=== PATIENT | female | born 1955 | race Caucasian/White ===

== ENCOUNTER 2016-09-05 06:35 | Outpatient (RCR) | payer OTHER ==
[2016-08-22 07:10] VITALS: BP 158/76
[2016-08-22] MEDS: VANCOMYCIN 1 GM/NS 250 ML IVPB IV SCH ×2 (07:10)
[2016-08-22 08:15] VITALS: BP 158/76
[2016-08-23] MEDS: VANCOMYCIN 1 GM/NS 250 ML IVPB IV SCH ×2 (07:05)
[2016-08-23 08:11] VITALS: BP 147/82
[2016-08-24] MEDS: VANCOMYCIN 1 GM/NS 250 ML IVPB IV SCH ×2 (07:58)
[2016-08-24 08:20] VITALS: BP 130/102
[2016-08-24 09:03] VITALS: BP 130/82
[2016-08-25] MEDS: VANCOMYCIN 1 GM/NS 250 ML IVPB IV SCH ×2 (08:00)
[2016-08-25 09:00] VITALS: BP 152/76
[2016-08-26] MEDS: CATHETER FLUSH 10 ML SYR IV PRN ×2 (06:55→07:55)
[2016-08-26] MEDS: VANCOMYCIN 1 GM/NS 250 ML IVPB IV SCH ×2 (06:55)
[2016-08-26 07:12] VITALS: BP 113/68
[2016-08-27] MEDS: CATHETER FLUSH 10 ML SYR IV PRN ×2 (07:15→09:25)
[2016-08-27] MEDS: VANCOMYCIN 1 GM/NS 250 ML IVPB IV SCH ×2 (07:15)
[2016-08-27 09:30] VITALS: BP 121/66
[2016-08-28] MEDS: CATHETER FLUSH 10 ML SYR IV PRN ×2 (06:40→08:40)
[2016-08-28] MEDS: VANCOMYCIN INJECTION 1,500 MG in NS IV 500 ML 500 ML IV SCH (06:40)
[2016-08-28 07:48] VITALS: BP 130/71
[2016-08-29] MEDS: VANCOMYCIN INJECTION 1,500 MG in NS IV 500 ML 500 ML IV SCH (06:33)
[2016-08-29] MEDS: CATHETER FLUSH 10 ML SYR IV PRN ×2 (06:33→08:35)
[2016-08-29 07:11] VITALS: BP 130/71
[2016-08-30] MEDS: CATHETER FLUSH 10 ML SYR IV PRN ×2 (07:00→09:56)
[2016-08-30] MEDS: VANCOMYCIN INJECTION 1,500 MG in NS IV 500 ML 500 ML IV SCH (07:55)
[2016-08-30 10:00] VITALS: BP 118/65
[2016-08-31] MEDS: CATHETER FLUSH 10 ML SYR IV PRN ×2 (08:13→10:15)
[2016-08-31 08:15] VITALS: BP 126/63
[2016-08-31] MEDS: VANCOMYCIN INJECTION 1,500 MG in NS IV 500 ML 500 ML IV SCH (08:15)
[2016-09-01 08:00] VITALS: BP 110/64
[2016-09-01] MEDS: CATHETER FLUSH 10 ML SYR IV PRN ×2 (08:37→11:30)
[2016-09-01 08:53] LABS: RED BLOOD COUNT 3.79 10^6/uL (4.35-5.85); RED CELL DISTRIBUTION WIDTH 13.9 % (10.0-14.5); WHITE BLOOD COUNT 4.8 10^3/uL (4.3-11.0)
[2016-09-01 09:10] LABS: BILIRUBIN,TOTAL 0.6 MG/DL (0.1-1.0); CALCIUM 9.1 MG/DL (8.5-10.1); CREATININE SERUM 1.02 MG/DL (0.60-1.30); POTASSIUM 4.1 MMOL/L (3.6-5.0); TOTAL PROTEIN 6.9 G/DL (6.4-8.2)
[2016-09-01] MEDS: VANCOMYCIN INJECTION 1,500 MG in NS IV 500 ML 500 ML IV SCH (09:25)
[2016-09-02] MEDS: VANCOMYCIN INJECTION 1,500 MG in NS IV 500 ML 500 ML IV SCH (06:45)
[2016-09-02] MEDS: CATHETER FLUSH 10 ML SYR IV PRN ×2 (06:45→08:50)
[2016-09-02 08:55] VITALS: BP 110/56
[2016-09-02 12:26] LABS: BASOPHILS % (AUTO) 0 % (0-10); EOSINOPHILS # (AUTO) 0.2 10^3/uL (0.0-0.3); EOSINOPHILS % (AUTO) 4 % (0-10); LYMPHOCYTES # (AUTO) 0.5 X 10^3 (1.0-4.0); LYMPHOCYTES % (AUTO) 12 % (12-44); MEAN CORPUSCULAR HEMOGLOBIN 29 PG (25-34); MEAN CORPUSCULAR HGB CONC 36 G/DL (32-36); MEAN CORPUSCULAR VOLUME 82 FL (80-99); MEAN PLATELET VOLUME 9.5 FL (7.4-10.4); MONOCYTES # (AUTO) 0.3 X 10^3 (0.0-1.0); MONOCYTES % (AUTO) 7 % (0-12); NEUTROPHILS % (AUTO) 76 % (42-75); PLATELET COUNT 202 10^3/uL (130-400); RED CELL DISTRIBUTION WIDTH 13.9 % (10.0-14.5)
[2016-09-03] MEDS: VANCOMYCIN INJECTION 1,500 MG in NS IV 500 ML 500 ML IV SCH (07:15)
[2016-09-03] MEDS: CATHETER FLUSH 10 ML SYR IV PRN ×2 (07:15→09:20)
[2016-09-03 07:57] VITALS: BP 104/63
[2016-09-04] MEDS: CATHETER FLUSH 10 ML SYR IV PRN ×2 (06:18→08:33)
[2016-09-04] MEDS: VANCOMYCIN INJECTION 1,500 MG in NS IV 500 ML 500 ML IV SCH (06:25)
[2016-09-04 08:35] VITALS: BP 114/52
[~2016-09-05] VITALS: Ht 160 cm; Wt 68.0 kg
[2016-09-05 06:35] VITALS: BP 109/77
[~2016-09-05 06:35] MED LIST: ALLO100T PO; AMOX1TAB12 PO; ASP81TEC PO; Azithromycin PO; BACL10TA PO; C250T PO; CALC-172 PO; CEFD300C PO; E400C PO; FLUT9.9S NS; FOLI1TAB10 PO; GUAI400T71 PO; HYDR-3583 PO; HYDR50TA3 PO; IBP800T PO; LISI1TAB10 PO; LISI1TAB78 PO; LORA10CA PO; NF-METANX PO; OMEP40CA36 PO; PNT40TEC PO; POTA99TA7 PO; SODIUM CHLORIDE (ADD-VANTAGE) 250 ML ONE; TROUGH ORDER-PHARMACY XX NR; VANC1FRO IV; VANCOMYCIN 1 GM ADD-VANTAGE VIAL IV ONE; VANCOMYCIN 500 MG/NS 100 ML IVPB IV ONE
[2016-09-05] MEDS: VANCOMYCIN INJECTION 1,500 MG in NS IV 500 ML 500 ML IV SCH (07:17)
[2016-09-05] MEDS ORDERED: L.AC1CAP6 PO (12:26)
[2016-09-05] MEDS ORDERED: AMOX-358 PO (12:26)
[2016-09-05] MEDS ORDERED: BACL10TA PO (12:26)
[2016-09-06] MEDS ORDERED: TROUGH ORDER-PHARMACY XX NR (07:00)
[2016-09-12] MEDS ORDERED: MERO500V3 IV ×2 (08:53→13:05)
== END 2016-11-20 | disposition home or self-care (01) ==
LOC: SDC 06:35
PROVIDERS: ATTEND Family Medicine
DX: J15.9 Unspecified bacterial pneumonia (principal)
CPT/HCPCS: 36415; 36592; 80053; 80202; 85025; 85027; 87040; 96365; 96366; 99211

== ENCOUNTER 2016-09-25 06:40 | Outpatient (RCR) | payer OTHER ==
[2016-09-18 10:05] VITALS: BP 118/70
[~2016-09-25] VITALS: Ht 160 cm; Wt 69.4 kg
[~2016-09-25 06:40] MED LIST changes: +AMOX-358 PO; +L.AC1CAP6 PO; +MERO500V3 IV; -SODIUM CHLORIDE (ADD-VANTAGE) 250 ML ONE; -TROUGH ORDER-PHARMACY XX NR; -VANCOMYCIN 1 GM ADD-VANTAGE VIAL IV ONE; -VANCOMYCIN 500 MG/NS 100 ML IVPB IV ONE
[2016-09-25 07:00] VITALS: BP 152/83
== END 2016-12-17 | disposition home or self-care (01) ==
LOC: SDC 06:40
PROVIDERS: ATTEND Family Medicine
DX: Z45.2 Encounter for adjustment and management of vascular access device (principal)
CPT/HCPCS: 99212

== ENCOUNTER → 2017-03-06 | Outpatient (CLI) | payer OTHER ==
--- NOTE | 2017-03-06 17:18 | Diagnostic Imaging Report ---
PROCEDURE: CT urinary tract, rule out kidney stone. TECHNIQUE: Multiple contiguous axial images were obtained through the abdomen and pelvis without the use of intravenous contrast. DATE: March 06, 2017. COMPARISON: CT abdomen and pelvis, February 20, 2015. INDICATION: A 61-year-old female, right lower back and flank pain. Hematuria. FINDINGS: There is opacification within the peripheral right lower lobe subsegmental bronchus which is unchanged in extent since February 20, 2015. The additional visualized portions of the lung bases are clear. The heart is not enlarged. There is no pericardial effusion. The liver is normal in size and contour. The patient is status post cholecystectomy. There is no intrahepatic or extrahepatic bile duct dilation. There is no abnormal dilation of the main pancreatic duct. The pancreatic parenchyma is grossly unremarkable on noncontrast assessment. The spleen is not enlarged. There is a small accessory splenule on axial image 37. The adrenal glands are unremarkable. Unremarkable noncontrast appearance of the renal parenchyma. The urinary collecting systems are not distended. There is no identified renal or ureteral stone. The urinary bladder is unremarkable in appearance. There is diverticulosis without evidence of acute diverticulitis. The intestinal tract is not distended. The appendix is not well seen. There are no secondary findings to suggest acute appendicitis. There is no free intraperitoneal air. There is no drainable fluid collection. There is a duodenal diverticulum arising from the third portion of the duodenum which measures roughly 2.5 x 2.5 cm in axial dimension on axial image 49. There is no identified abnormally enlarged lymph node within the abdomen or pelvis which meets CT size criteria for adenopathy. There are mild atherosclerotic calcifications. 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 There are degenerative changes of the lower lumbar spine with very mild lumbar dextrocurvature. There is no identified acute bony abnormality. IMPRESSION: CT ABDOMEN AND PELVIS. 1. No identified acute abnormality within the abdomen or pelvis. 2. Diverticulosis without evidence of diverticulitis. 3. Duodenal diverticulum. 4. Persistent opacification within a subsegmental right lower lobe bronchus which is unchanged dating back to at least February 20, 2015, which is suggestive of benign etiology. Dictated by: Dictated on workstation # [id number]
== END ==
LOC: RAD 16:48
PROVIDERS: ATTEND Nurse Practitioner
DX: K57.30 Diverticulosis of large intestine without perforation or abscess without bleeding (principal); K57.10 Diverticulosis of small intestine without perforation or abscess without bleeding; R31.9 Hematuria, unspecified
CPT/HCPCS: 74176

== ENCOUNTER → 2017-04-15 | Outpatient (CLI) | payer OTHER ==
--- NOTE | 2017-04-15 10:51 | Diagnostic Imaging Report ---
PROCEDURE: CT chest without contrast. TECHNIQUE: Multiple contiguous axial images were obtained through the chest without the use of intravenous contrast. INDICATION: Lung nodules followup. COMPARISON: Exam on 10/10/2016 FINDINGS: There is a lung nodule seen along the lateral aspect of the right middle lobe just below the level of the minor fissure measuring 8 mm and is similar to the prior exam. There is also a nodular elongated density seen in the lateral aspect of the left lung base with a configuration suggestive of atelectasis or scarring, unchanged from the previous study. The left lung demonstrates stable 5 mm nodule along the major fissure with no significant consolidation, mass or suspicious nodule. The heart size is normal. There is no mediastinal mass. No lymphadenopathy in the axilla or the mediastinum seen. No significantly enlarged lymph nodes or mass seen abutting the unopacified hilar vessels. The thoracic aorta is normal in caliber. There is no pericardial or pleural effusion. The sections in the upper abdomen demonstrate cholecystectomy clips. The osseous structures demonstrate mild degenerative changes of the thoracic spine. IMPRESSION: Stable bilateral pulmonary nodules and right lung base subsegmental consolidation likely related to scarring or chronic atelectasis. A followup study in 9-12 months is recommended to ensure further stability. Dictated by: Dictated on workstation # [id number]
== END ==
LOC: RAD 07:37
PROVIDERS: ATTEND Internal Medicine Critical Care Medicine
DX: J85.2 Abscess of lung without pneumonia (principal); R91.8 Other nonspecific abnormal finding of lung field
CPT/HCPCS: 71250

== ENCOUNTER → 2017-05-26 | Outpatient (CLI) | payer OTHER | LOC: RT 12:30 | PROVIDERS: ATTEND Nurse Practitioner Family | DX: R06.00 Dyspnea, unspecified (principal); R91.8 Other nonspecific abnormal finding of lung field; F17.201 Nicotine dependence, unspecified, in remission | CPT/HCPCS: 94060; 94726; 94729 ==

== ENCOUNTER → 2017-10-20 | Outpatient (CLI) | payer OTHER ==
--- NOTE | 2017-10-20 14:30 | Diagnostic Imaging Report ---
INDICATION: Cough. History of flu. COMPARISON: CT chest dated 04/15/2017. FINDINGS: Frontal and lateral radiographic views of the chest were obtained and demonstrate interval development of rounded masslike opacity in the right lower lobe that measures approximately 3.9 x 3.1 cm on the frontal view. There is central lucency. This is new when compared to CT chest dated 04/15/2017. Left lung is relatively clear. No large effusion or pneumothorax is seen on either side. Cardiac silhouette and pulmonary vasculature are within normal limits. IMPRESSION: 1. Rounded masslike opacity in right lower lobe. Given that this is new since 04/15/2017, rounded pneumonia is favored. True soft tissue mass cannot be entirely excluded. Central lucency also raises potential for intraparenchymal abscess or other cavitary process. Tuberculosis not excluded. Cavitary neoplasm such as squamous cell carcinoma is also within the differential. Correlation with CT is recommended. Dictated by: Dictated on workstation # [id number]
== END ==
LOC: RAD 13:08
PROVIDERS: ATTEND Family Medicine
DX: R91.8 Other nonspecific abnormal finding of lung field (principal); R04.2 Hemoptysis
CPT/HCPCS: 71020

== ENCOUNTER → 2017-10-22 | Outpatient (CLI) | payer OTHER ==
[~2017-10-22] MED LIST changes: +CATHETER FLUSH 10 ML SYR IV PRN; +IOHEXOL 350 MG/ML 100 ML (OMNIPAQUE 350) VIAL IV ONE; +NS 100 ML (IVPB) BAG IV ONE
[2017-10-22 10:07] LABS: BLOOD UREA NITROGEN 15 MG/DL (7-18); BUN/CREATININE RATIO 16; CREATININE SERUM 0.93 MG/DL (0.60-1.30); GFR ESTIMATED > 60
--- NOTE | 2017-10-22 11:36 | Diagnostic Imaging Report ---
PROCEDURE: CT chest with contrast only. TECHNIQUE: Multiple contiguous axial images were obtained through the chest after administration of intravenous contrast. INDICATION: Cough, congestion. COMPARISON: Exam compared to 04/15/2017, also compared to 10/10/2016. FINDINGS: Corresponding to the site of a chronic curvilinear subpleural opacity in the patient's right lower lobe laterally, there has been the development of a thickwalled Irregular cavitary lesion with internal air-fluid level. The lesion's outer wall to outer wall diameter today measures maximal 4.1 x 3.6 cm. The process previously had a stable short axis thickness of 9 mm. Peripheral to this lesion is airspace opacity and infiltrate. Perifissural or interfissural nodule on the right measured 9.5 mm. This previously measured 8 mm. There is no effusion or pneumothorax. Subcarinal lymph node measures a short axis thickness of 9.8 mm, this is a new finding. Adjacent hilar nodules or bilobed mass is measured in aggregate at 2 cm long axis with short axis thickness of 1.3 cm, also an apparent new finding. Superior mediastinal pretracheal node measures 11 mm x 6 mm, new. The adrenals are unremarkable. Incompletely visualized liver, unremarkable. Gallbladder is surgically absent. No destructive osseous lesion. IMPRESSION: Thickwalled cavitary mass effect in the right lower lobe has developed at the site of previous stable curvilinear infiltrate or scarring. Peripheral to the mass effect is airspace disease. This could be centrally necrotic tumor or abscess. The process could be sampled percutaneously utilizing CT guidance. A mendy or interfissural nodule in the right has increased in size. There is mild mediastinal and right hilar lymphadenopathy which could be reactive or metastatic. No empyema or effusion. The visualized upper abdomen is nonacute. Dictated by: Dictated on workstation # [id number]
== END ==
LOC: RAD 09:38
PROVIDERS: ATTEND Nurse Practitioner Family
DX: R91.8 Other nonspecific abnormal finding of lung field (principal); R59.0 Localized enlarged lymph nodes
CPT/HCPCS: 36415; 71260; 82565; 84520

== ENCOUNTER → 2017-11-25 | Outpatient (CLI) | payer OTHER ==
[~2017-11-25] MED LIST changes: -CATHETER FLUSH 10 ML SYR IV PRN; -IOHEXOL 350 MG/ML 100 ML (OMNIPAQUE 350) VIAL IV ONE; -NS 100 ML (IVPB) BAG IV ONE
--- NOTE | 2017-11-25 09:53 | Diagnostic Imaging Report ---
PROCEDURE: CT chest without contrast. TECHNIQUE: Multiple contiguous axial images were obtained through the chest without the use of intravenous contrast. INDICATION: Lung mass The recent CT chest exam performed on 10/22/2017 noted a thickwalled cavitary mass in the right lower lobe. There is also associated airspace disease about this mass. On the prior study the mass in question measured 4.1 x 3.6 CM. On this study, the mass has decreased considerably in size and now measures 2.0 x 2.4 CM. There is also much less associated pneumonia/atelectasis about this mass. The small 9 MM node along the periphery of the right lung base seen previously is again evident and no different. There is also a 4 MM parenchymal opacity in the left perihilar region. This finding is unchanged as well. The lungs are otherwise generally clear. There is no sign of a pleural effusion. The heart size is stable and within normal limits. Sparse coronary artery calcifications are noted. The aorta is not abnormally dilated. There is no obvious mediastinal or hilar adenopathy. The thyroid gland is generally unremarkable. The sections through the upper abdomen failed to show any sign of an acute abnormality. The bone windows are unremarkable for a fracture or for a destructive lesion. There is no obvious breast mass. According to our records the patient has not had a mammogram. If the patient has had a recent (within the last year) mammogram elsewhere, then no further imaging will be necessary. However, if patient has not had a recent mammogram, then mammography would be recommended for further study. IMPRESSION: 1. The appearance of the chest has improved since the prior exam as the cavitary lesion in the right lung base has decreased in size and there is much less associated pneumonia/atelectasis. The decrease in the size of the cavitary lesion would suggest it is more likely due to an inflammatory/infectious process than to neoplasm. A short-term (4-6 week) followup CT chest exam would be recommended for continued evaluation. 2. There is no acute cardiopulmonary abnormality noted otherwise. 3. There is no obvious breast mass. Recommendations as above. Dictated by: Dictated on workstation # [id number]
== END ==
LOC: RAD 08:14
PROVIDERS: ATTEND Nurse Practitioner Family
DX: R91.1 Solitary pulmonary nodule (principal)
CPT/HCPCS: 71250

== ENCOUNTER → 2018-01-12 | Outpatient (CLI) | payer OTHER ==
--- NOTE | 2018-01-12 09:23 | Diagnostic Imaging Report ---
PROCEDURE: CT chest without contrast. TECHNIQUE: Multiple contiguous axial images were obtained through the chest without the use of intravenous contrast. INDICATION: Right-sided lung mass. COMPARISON: CT chest from 11/25/2017. FINDINGS: No axillary lymphadenopathy is identified. The hilar and mediastinal evaluation is limited without intravenous contrast but no gross abnormality is seen. No pericardial or pleural fluid is identified. The previously noted subpleural nodule along the major fissure on the right is stable to slightly smaller measuring 7 mm compared with 9 mm. There continues to be significant improvement in the cavitary lesion involving the superior segment of the right lower lobe. The cavitary component measures 1.8 cm AP x 2.1 cm transverse compared with approximately 2.4 cm x 2.0 cm previously. The wall of the lesion is very thin on today's study. The surrounding parenchymal opacity also shows significant improvement, likely improving infiltrate. There continues to be an area of linear parenchymal density along the lateral portion of the lesion, consistent with scarring or atelectasis. No new parenchymal mass is identified. The upper abdomen is unremarkable. IMPRESSION: Continued improvement in the cavitary lesion involving the superior segment of the right lower lobe. Again, this is likely on an infectious/inflammatory basis. Continued followup is recommended. Dictated by: Dictated on workstation # [id number]
== END ==
LOC: RAD 08:41
PROVIDERS: ATTEND Nurse Practitioner Family
DX: R91.8 Other nonspecific abnormal finding of lung field (principal)
CPT/HCPCS: 71250

== ENCOUNTER → 2019-04-15 | Outpatient (CLI) | payer OTHER | LOC: CARD 08:05 | PROVIDERS: ATTEND Internal Medicine Cardiovascular Disease | DX: R07.89 Other chest pain (principal); I10 Essential (primary) hypertension; R06.09 Other forms of dyspnea; F17.201 Nicotine dependence, unspecified, in remission; I08.1 Rheumatic disorders of both mitral and tricuspid valves | CPT/HCPCS: 93306 ==

== ENCOUNTER → 2019-04-15 | Outpatient (CLI) | payer OTHER ==
--- NOTE | 2019-04-15 13:22 | Diagnostic Imaging Report ---
INDICATION: Left flank pain x2 days.. TECHNIQUE: 2 supine views of the abdomen at 9:04 AM CORRELATION STUDY: None FINDINGS: Scattered gas-filled loops of bowel are present, nonobstructive pattern. Mild severity fecal retention. Presumably cholecystectomy clips in the right upper quadrant. There is a small, 2 mm calcification in the left hemipelvis. In correlation with the prior CT imaging, likely reflects a small calcification previously adjacent to the cervix. Minimal rightward curvature lower lumbar spine. IMPRESSION: 1. Nonobstructed appearing bowel gas pattern. 2. Small calcification of left hemipelvis, likely present on prior imaging and demonstrated to be outside the course of the ureter. Dictated by: Dictated on workstation # [id number]
== END ==
LOC: RAD 08:55
PROVIDERS: ATTEND Family Medicine
DX: K66.8 Other specified disorders of peritoneum (principal); R10.9 Unspecified abdominal pain; R30.9 Painful micturition, unspecified
CPT/HCPCS: 74018

== ENCOUNTER → 2019-06-09 | Outpatient (CLI) | payer OTHER ==
[~2019-06-09] VITALS: Ht 160 cm; Wt 73.9 kg
[~2019-06-09] MED LIST changes: +CATHETER FLUSH 10 ML SYR IV PRN
--- NOTE | 2019-06-10 09:31 | STRESS TEST ---
DATE OF SERVICE: EXERCISE MYOVIEW STRESS TEST REPORT REFERRING PHYSICIANS: 1. Dr. Kamaljit Mathur. 2. Dr. Glenys Puentes. Baseline heart rate is 56. Baseline blood pressure 190/86. Baseline EKG is sinus rhythm with no ischemic changes. IN SUMMARY: The patient was injected with 10.83 mCi of technetium-99 Myoview and the resting images were obtained. Then, the patient started exercising with a baseline heart rate, blood pressure and EKG mentioned above. The patient was able to exercise for a total of 5 minutes 25 seconds on standard Jhonny protocol. With peak exercise level, EKG was showing [address] depression in II, III, aVF. Blood pressure was 217/90. During recovery, the patient had occasional PVCs persisted in recovery and pre-exercise. No acute ischemic changes. The resting and stress images were reviewed and compared in the short axis, horizontal long axis, and vertical long axis views. Review of the images showed breast attenuation affecting the quality of the images. There is decreased uptake involving the mid to apical anterior wall and anterolateral wall with reversibility. SSS is 11, SDS 10, TID value 1.12. On the gated images, the left ventricle appeared to be in normal size with normal contractility. Calculated ejection fraction 55%. IN CONCLUSION: 1. Fair exercise tolerance, a total of 5 minutes 25 seconds on standard Jhonny protocol, a total of 7.1 METS achieving 94% of maximum expected heart rate. 2. Baseline hypertension with severe hypertensive response to exercise with peak blood pressure 239/108. 3. Occasional PVCs noted prior to the exercise and during recovery. 4. Nondiagnostic EKG changes with exercise, returned to baseline during recovery. 5. Breast attenuation with reversible ischemia involving the mid to apical anterior wall and anterolateral . 6. Normal left ventricular size with normal contractility. Calculated ejection fraction 55%. Job ID: [id number] DocumentID: [id number] Dictated Date: 06/10/2019 08:29:05 Stamping Die Maker Date: 06/10/2019 09:30:00 Dictated By: DOMINGA GARSIA MD
== END ==
LOC: RAD 07:13
PROVIDERS: ATTEND Internal Medicine Cardiovascular Disease
DX: I11.9 Hypertensive heart disease without heart failure (principal); I25.89 Other forms of chronic ischemic heart disease; F17.201 Nicotine dependence, unspecified, in remission
CPT/HCPCS: 78452; 93017

== ENCOUNTER 2019-06-23 06:40 | Day surgery (SDC) | payer OTHER ==
[~2019-06-23] VITALS: Ht 160 cm; Wt 70.3 kg
[2019-06-23] VITALS (10 sets, daily range): BP systolic 106–165; BP diastolic 48–93
[~2019-06-23 06:40] MED LIST changes: -CATHETER FLUSH 10 ML SYR IV PRN
[2019-06-23] MEDS ORDERED: NS IV 1000 ML 1,000 ML ONE (06:47)
[2019-06-23] MEDS ORDERED: HEParin (CATH LAB) 2,000 ML IV ONE (06:47)
[2019-06-23] MEDS ORDERED: LIDOCAINE 1% INJ 20 ML 20 ML VIAL ONE (06:47)
[2019-06-23] MEDS ORDERED: NS IV 1000 ML 1,000 ML IV SCH ×2 (06:49→08:29)
[2019-06-23 07:10] LABS: HEMOGLOBIN 13.3 G/DL (11.5-16.0); MEAN PLATELET VOLUME 9.4 FL (7.4-10.4); RED CELL DISTRIBUTION WIDTH 14.1 % (10.0-14.5); WHITE BLOOD COUNT 5.5 10^3/uL (4.3-11.0)
[2019-06-23 07:22] LABS: INR 0.9 (0.8-1.4); PROTHROMBIN TIME PATIENT 12.5 SEC (12.2-14.7)
[2019-06-23] MEDS ORDERED: MAGN400C PO (07:23)
[2019-06-23] MEDS ORDERED: CETI10TA17 PO (07:23)
[2019-06-23] MEDS ORDERED: METO-387 PO (07:23)
[2019-06-23] MEDS ORDERED: CRAN200C PO (07:23)
[2019-06-23 07:30] LABS: ALBUMIN 4.3 GM/DL (3.2-4.5); BILIRUBIN,TOTAL 0.3 MG/DL (0.1-1.0); CALCIUM 9.8 MG/DL (8.5-10.1); CREATININE SERUM 1.11 MG/DL (0.60-1.30); POTASSIUM 4.6 MMOL/L (3.6-5.0); TOTAL PROTEIN 7.3 GM/DL (6.4-8.2)
[2019-06-23] MEDS ORDERED: VERAPAMIL 5 MG/2 ML (CALAN) VIAL IV ONE (07:40)
[2019-06-23] MEDS ORDERED: NITRO DRIP 25000 MCG/D5W 250 ML IV ONE (07:40)
[2019-06-23] MEDS ORDERED: fentaNYL INJECTION 100 MCG/2 ML AMP ONE (07:40)
[2019-06-23] MEDS ORDERED: HEParin 1000 UNIT/ML (10ML VIAL) FOR BOLUS ONE (07:40)
[2019-06-23] MEDS ORDERED: MIDAZOLAM 5 MG/5 ML (VERSED) VIAL ONE (07:40)
--- NOTE | 2019-06-23 07:52 | Diagnostic Imaging Report ---
INDICATION: Heart cath. COMPARISON: CT chest of 01/12/2018. FINDINGS: Portable chest. The lungs are well-aerated. No infiltrates or cavitary lesions demonstrated on today's exam. Heart is not enlarged. There is no pulmonary edema or hilar adenopathy. No pneumothorax or pleural effusion. No bony abnormalities. IMPRESSION: Normal portable chest. Dictated by: Dictated on workstation # [id number]
--- NOTE | 2019-06-23 08:11 | Cardiac Procedure Note-CS/ASA ---
Pre-Procedure Note Pre-Op Procedure Note H&P Reviewed The H&P was reviewed, patient examined and no changes noted. Date H&P Reviewed: Jun 23, 2019 Time H&P Reviewed: 08:11 Conscious Sedation Pre-Proced Time 08:11 ASA Score 3 For ASA 3 and 4: Consider anesthesia and medical clearance. Also, for patients with a history of failed moderate sedation consider anesthesia. Airway Lungs Heart ASA score ASA 1: a normal healthy patient ASA 2: a patient with a mild systemic disease (mid diabetes, controlled hypertension, obesity x ASA 3: a patient with a severe systemic disease that limits activity (angina, COPD, prior Myocardial infarction) ASA 4: a patient with an incapacitating disease that is a constant threat to life (CHF, renal failure) ASA 5: a moribund patient not expected to survive 24 hrs. (ruptured aneurysm) ASA 6: a declared brain- patient whose organs are being harvested. For emergent operations, add the letter E after the classification Mallampati Classification Grade 3 Sedation Plan Analgesia, Amnesia, Plan communicated to team members, Discussed options with patient/fam, Discussed risks with patient/fam The patient is an appropriate candidate to undergo the planned procedure, sedation, and anesthesia. The patient immediately re-assessed prior to indication. DOMINGA GARSIA MD Jun 23, 2019 08:11
--- NOTE | 2019-06-23 08:34 | Discharge Inst-Post CATH ---
Discharge Inst-CATH/EP Problems Reviewed?: Yes Post Cardiac Cath/EP D/C Inst Follow Up/Plan Appointment with Dr José's office in 2-4 weeks <b>CARDIAC CATH/EP PROCEDURE DISCHARGE INSTRUCTIONS</b> ACTIVITY * Go Home directly and rest. * Limit activity of the leg (or wrist if it was used) for 7 days including aerobics, swimming, jogging, bicycling, etc. * Restrict stair-climbing for 7 days if possible, if not, climb up with your non-cath leg, then bring together on the same step. * Avoid lifting, pushing, pulling or excessive movement of the affected extremity for 7 days. * Customary sexual activity may be resumed after 2 days-use caution not to use a position that strains or causes pain to the affected extremity. * No driving for 24 hours. * NO SMOKING. * Avoid straining for bowel movements for 7 days. * Gentle walking on level ground is allowed. * Returning to work will depend on the type of procedure and the results. Your doctor will discuss this with you. CALL YOUR DOCTOR FOR ANY OF THE FOLLOWING: *If bleeding from the puncture site occurs- Apply gentle pressure to site with clean cloth and call your doctor or EMS. * If a knot or lump forms under the skin, increases in size, or causes pain. * If bruising appears to be worsening or moving further down your leg instead of disappearing. * Temperature above 101 F. CARE OF YOUR GROIN INCISION; * Bruising or purple discoloration of the skin near the puncture site is common. * You may shower only, no bathtub bathing for 5 days. Be careful to avoid slipping as your leg may feel stiff. * If a closure device was used on your femoral artery, please see the attached guide regarding care of the device and your leg. * Leave dressing on FOR 24 hours. CARE OF YOUR WRIST INCISION; * Bruising or purple discoloration of the skin near the puncture site is common. * You may shower. * DO NOT submerge wrist. * Leave dressing on FOR 24 hours. DOMINGA JOSÉ MD Jun 23, 2019 08:34
--- NOTE | 2019-06-23 08:38 | Cardiac Cath Report ---
Cardiac Cath Report Physician (s)/Delicatessen Store Manager (s) Physician DOMINGA GARSIA MD Pre-Procedure Diagnosis Pre-Procedure Diagnosis: coronary artery disease Post-Procedure Note Procedure Start Date: Jun 23, 2019 Name of Procedure: Left heart catheterization Findings/Procedure Note PROCEDURE NOTE: 64-year-old lady with history of hypertension, had abnormal stress test with anterior wall ischemia, she was scheduled for cardiac catheterization possible PTCA. After explaining the procedure to the patient, all pros and cons were explained, all questions were answered. The patient signed the consent and then she was placed on the cardiac catheterization laboratory. Groin was prepped SL fashion local anesthesia was used. Sheath placed in the right radial artery, Dickens catheter was used and advanced the left ventricular cavity left ventricular gram was done then pullback LV to aorta was done, intubated the left main system and left coronary angiogram was done then turned to the right coronary system and intubated the right coronary artery and angiogram was done. At the end of the procedure sheath was removed vascular band was used. FINDINGS: Hemodynamics LV 111/21, end-diastolic pressure of 21 Aorta 107/56 mean of 78 ANATOMY: Left Main is free of obstructive disease Left Anterior Descending is slightly tortuous artery smaller artery with no significant obstructive disease, mild disease Left Circumflex is moderate size artery, no significant obstructive disease Right Coronory Artery is dominant artery with mild disease no obstructive disease LV Gram was done showing normal left ventricular size and systolic function estimated ejection fraction 60 percent CONCLUSION: 1. Small LAD system, mild disease nonobstructive disease 2. Otherwise no significant obstructive disease 3. Normal left ventricular size and systolic function estimated ejection fraction 60 percent DISCUSSION AND RECOMMENDATION: stress test abnormalities probably due to extracardiac attenuation, no significant obstructive disease was noted. Medical therapy is recommended Anesthesia Type: Conscious Sedation Estimated blood loss (mL): 5 ml Contrast Amount: 29 ml Total Radiation Dose: 151 mGy Post-Procedure Diagnosis Post-operative diagnosis: Chest pain Coronary artery disease Hypertension DOMINGA GARSIA MD Jun 23, 2019 08:38
== END 2019-06-23 12:15 | disposition home or self-care (01) ==
LOC: CATH 06:40
PROVIDERS: ATTEND Internal Medicine Cardiovascular Disease
DX: I25.10 Atherosclerotic heart disease of native coronary artery without angina pectoris (principal); I10 Essential (primary) hypertension; R06.00 Dyspnea, unspecified; R53.83 Other fatigue; R04.2 Hemoptysis; M10.9 Gout, unspecified; Z87.891 Personal history of nicotine dependence; Z90.89 Acquired absence of other organs; Z79.899 Other long term (current) drug therapy; Z87.09 Personal history of other diseases of the respiratory system; Z82.49 Family history of ischemic heart disease and other diseases of the circulatory system
CPT/HCPCS: 36415; 71045; 80053; 80061; 85027; 85610; 85730; 87081; 93458

== ENCOUNTER 2020-01-24 06:11 | Outpatient (RCR) | payer OTHER ==
[~2020-01-24 06:11] MED LIST changes: +CETI10TA17 PO; +CRAN200C PO; -GUAI400T71 PO; +GUAI400T86 PO; -LISI1TAB10 PO; +LISI1TAB26 PO; +MAGN400C PO; +MERO500V24 IV; -MERO500V3 IV; +MTP25TSR PO
== END 2020-02-16 | disposition home or self-care (01) ==
LOC: CR3 06:11
PROVIDERS: ATTEND Family Medicine
DX: Z29.8 Encounter for other specified prophylactic measures (principal)

== ENCOUNTER 2020-05-23 08:31 | Emergency (ER) | payer OTHER, MEDICARE ==
[~2020-05-23] VITALS: Ht 165.1 cm; Wt 75.0 kg
--- OUTSIDE RECORDS SUMMARY | 2020-05-23 08:38 | XMS REPORT ---
Author Author Reny Spivey Doctor Organization [facility] Address Unknown Phone Unavailable Care Team Providers Care Bonding Machine Operator Name Role Phone Migration, Doctor Unavailable Unavailable PROBLEMS Type Condition ICD9-CM Code [id number] Code Onset Dates Condition S tatus SNOMED Code Problem DTAP TEST V06.1 Active ALLERGIES No Information ENCOUNTERS Encounter Location Date Diagnosis [facility] [address] [facility] [id number] [address] [place] [id number] Sep, Bronchitis J40 [facility] [address] [facility] [id number] [address] [place] [id number] Jul, [facility] [address] [facility] [id number] [address] [place] [id number] Jul, IMMUNIZATIONS No Known Immunizations SOCIAL HISTORY Never Assessed REASON FOR VISIT PLAN OF CARE VITAL SIGNS MEDICATIONS No Known Medications RESULTS No Results PROCEDURES No Known procedures INSTRUCTIONS MEDICATIONS ADMINISTERED No Known Medications MEDICAL (GENERAL) HISTORY Type Description Date Surgical History Hospitalization History pneumonia UTI Dehydration
--- OUTSIDE RECORDS SUMMARY | 2020-05-23 08:39 | XMS REPORT | Continuity of Care Document ---
Author Organization Unknown Address Unknown Phone Unavailable Allergies Active Description Code Type Severity Reaction Onset Reported/Identified Relationship to Patient Clinical Status Yes codeine [id number] Drug Allergy Mild NAUSEA...CAN TA 09/05/2016 Medications There is no data. Problems Date Dx Coded Attending Type Code Diagnosis Diagnosed By 08/06/2014 BENJAMIN IRWIN DO V06.1 TDAP DX 02/21/2015 TAMIANDER DO, GLENYS S Ot 274.9 02/21/2015 ORENDER DO, GLENYS S Ot 303.90 02/21/2015 ORENDER DO, GLENYS S Ot 401.9 02/21/2015 ORENDER DO, GLENYS S Ot 486 02/21/2015 ORENDER DO, GLENYS S Ot 530.81 02/21/2015 ORENDER DO, GLENYS S Ot 599.0 02/22/2015 ORENDER DO, GLENYS S Ot 274.9 02/22/2015 ORENDER DO, GLENYS S Ot 303.90 02/22/2015 ORENDER DO, GLENYS S Ot 401.9 02/22/2015 ORENDER DO, GLENYS S Ot 486 02/22/2015 ORENDER DO, GLENYS S Ot 530.81 02/22/2015 ORENDER DO, GLENYS S Ot 599.0 02/23/2015 ORENDER DO, GLENYS S Ot 274.9 02/23/2015 ORENDER DO, GLENYS S Ot 303.90 02/23/2015 ORENDER DO, GLENYS S Ot 401.9 02/23/2015 ORENDER DO, GLENYS S Ot 486 02/23/2015 ORENDER DO, GLENYS S Ot 530.81 02/23/2015 ORENDER DO, GLENYS S Ot 599.0 02/23/2015 ORENDER DO, GLENYS S Ot 274.9 02/23/2015 ORENDER DO, GLENYS S Ot 276.51 02/23/2015 ORENDER DO, GLENYS S Ot 303.90 02/23/2015 ORENDER DO, GLENYS S Ot 303.91 02/23/2015 ORENDER DO, GLENYS S Ot 401.9 02/23/2015 ORENDER DO, GLENYS S Ot 480.9 02/23/2015 ORENDER DO, GLENYS S Ot 486 02/23/2015 ORENDER DO, GLENYS S Ot 530.81 02/23/2015 ORENDER DO, GLENYS S Ot 599.0 02/23/2015 ORENDER DO, GLENYS S Ot 790.5 04/24/2015 DEJAN ROGERS WAREHOUSE HAND Ot V12.61 04/24/2015 DEJAN ROGERS WAREHOUSE HAND Ot V67.59 01/15/2016 GLADYS SWIFT SENIOR SOFTWARE DEVELOPMENT MANAGER Ot R00.1 01/15/2016 GLADYS SWIFT APRN Ot R04.2 01/15/2016 GLADYS SWIFT APRN Ot R91.8 01/22/2016 ORENDER DO, GLENYS S Ot R91.8 OTHER NONSPECIFIC ABNORMAL FINDING OF CED 01/23/2016 ORENDER DO, GLENYS S Ot R91.8 01/25/2016 GLADYS SWIFT APRN Ot R04.2 01/25/2016 GLADYS SWIFT APRN Ot R91.8 05/02/2016 GRACIE JOSHI DO M Ot R91. 1 SOLITARY PULMONARY NODULE 05/02/2016 GRACIE JOSHI DO M Ot R91. 1 SOLITARY PULMONARY NODULE 2016 GRACIE JOSHI DO M Ot R91. 1 SOLITARY PULMONARY NODULE 05/17/2016 MELONY JOSHI DOSON M Ot R91. 1 SOLITARY PULMONARY NODULE 08/07/2016 ORENDER DO, GLENYS S Ot R10.9 UNSPECIFIED ABDOMINAL PAIN 08/07/2016 ORENDER DO, GLENYS S Ot R60.9 EDEMA, UNSPECIFIED 08/15/2016 GLADYS SWIFT SENIOR SOFTWARE DEVELOPMENT MANAGER Ot R00.1 BRADYCARDIA, UNSPECIFIED 08/15/2016 GLADYS SWIFT APRN Ot R04.2 HEMOPTYSIS 08/15/2016 GLADYS SWIFT Marlene SENIOR SOFTWARE DEVELOPMENT MANAGER Ot R91.8 OTHER NONSPECIFIC ABNORMAL FINDING OF CED 08/15/2016 GLADYS SWIFT Marlene SENIOR SOFTWARE DEVELOPMENT MANAGER Ot R04.2 HEMOPTYSIS 08/15/2016 GLADYS SWIFT Marlene SENIOR SOFTWARE DEVELOPMENT MANAGER Ot R91.8 OTHER NONSPECIFIC ABNORMAL FINDING OF CED 08/15/2016 GRACIE JOSHI DO M Ot R91. 1 SOLITARY PULMONARY NODULE 08/15/2016 TAMIANDER DO, GLENYS S Ot R10.9 UNSPECIFIED ABDOMINAL PAIN 08/15/2016 TAMIANDER DO, GLENYS S Ot R60.9 EDEMA, UNSPECIFIED 08/16/2016 GLADYS SWIFT Marlene SENIOR SOFTWARE DEVELOPMENT MANAGER Ot R00.1 BRADYCARDIA, UNSPECIFIED 08/16/2016 GLADYS SWIFT Marlene SENIOR SOFTWARE DEVELOPMENT MANAGER Ot R04.2 HEMOPTYSIS 08/16/2016 GLADYS SWIFT Marlene SENIOR SOFTWARE DEVELOPMENT MANAGER Ot R91.8 OTHER NONSPECIFIC ABNORMAL FINDING OF CED 08/16/2016 GLADYS SWIFT Marlene SENIOR SOFTWARE DEVELOPMENT MANAGER Ot R04.2 HEMOPTYSIS 08/16/2016 JAMISON GLADYS Marlene SENIOR SOFTWARE DEVELOPMENT MANAGER Ot R91.8 OTHER NONSPECIFIC ABNORMAL FINDING OF CED 08/16/2016 GRACIE JOSHI DO M Ot R91. 1 SOLITARY PULMONARY NODULE 08/16/2016 ORENDER DO, GLENYS S Ot R10.9 UNSPECIFIED ABDOMINAL PAIN 08/16/2016 ORENDER DO, GLENYS S Ot R60.9 EDEMA, UNSPECIFIED 08/16/2016 ORENDER DO, GLENYS S Ot R10.9 UNSPECIFIED ABDOMINAL PAIN 08/16/2016 ORENDER DO, GLENYS S Ot R60.9 EDEMA, UNSPECIFIED 08/21/2016 ORENDER DO, GLENYS S Ot I10 ESSENTIAL (PRIMARY) HYPERTENSION 08/21/2016 ATMIANDER DO, GLENYS S Ot J44.0 CHRONIC OBSTRUCTIVE PULMON DISEASE W ACU 08/21/2016 ORENDER DO, GLENYS S Ot J85.1 ABSCESS OF LUNG WITH PNEUMONIA 08/21/2016 TAMIANDER DO, GLENYS S Ot K21.9 GASTRO-ESOPHAGEAL REFLUX DISEASE WITHOUT 08/21/2016 ORENDER DO, GLENYS S Ot R91.1 SOLITARY PULMONARY NODULE 08/21/2016 ORENDER DO, GLENYS S Ot I10 ESSENTIAL (PRIMARY) HYPERTENSION 08/21/2016 ORENDER DO, GLENYS S Ot J44.0 CHRONIC OBSTRUCTIVE PULMON DISEASE W ACU 08/21/2016 ORENDER DO, GLENYS S Ot J85.1 ABSCESS OF LUNG WITH PNEUMONIA 08/21/2016 ORENDER DO, GLENYS S Ot K21.9 GASTRO-ESOPHAGEAL REFLUX DISEASE WITHOUT 08/21/2016 ORENDER DO, GLENYS S Ot R53.83 OTHER FATIGUE 08/21/2016 ORENDER DO, GLENYS S Ot R91.1 SOLITARY PULMONARY NODULE 08/21/2016 ORENDER DO, GLENYS S Ot T42.8X5A ADVERSE EFFECT OF ANTIPARKNS DRUG/CENTR 08/21/2016 ORENDER DO, GLENYS S Ot Z23 ENCOUNTER FOR IMMUNIZATION 08/27/2016 TAMIANDER DO GLENYS S Ot J15.9 UNSPECIFIED BACTERIAL PNEUMONIA 08/28/2016 TAMIANDER DO, GLENYS S Ot J15.9 UNSPECIFIED BACTERIAL PNEUMONIA 08/28/2016 TAMIANDER DO GLENYS S Ot J15.9 UNSPECIFIED BACTERIAL PNEUMONIA 08/28/2016 TAMIANDER DO, GLENYS S Ot I10 ESSENTIAL (PRIMARY) HYPERTENSION 08/28/2016 ORENDER DO, GLENYS S Ot J44.0 CHRONIC OBSTRUCTIVE PULMON DISEASE W ACU 08/28/2016 TAMIANDER DO, GLENYS S Ot J85.1 ABSCESS OF LUNG WITH PNEUMONIA 08/28/2016 TAMIANDER DO, GLENYS S Ot K21.9 GASTRO-ESOPHAGEAL REFLUX DISEASE WITHOUT 08/28/2016 ORENDER DO, GLENYS S Ot R53.83 OTHER FATIGUE 08/28/2016 TAMIANDER DO, GLENYS S Ot R91.1 SOLITARY PULMONARY NODULE 08/28/2016 ORENDER DO, GLENYS S Ot T42.8X5A ADVERSE EFFECT OF ANTIPARKNS DRUG/CENTR 08/28/2016 ORENDER DO, GLENYS S Ot Z23 ENCOUNTER FOR IMMUNIZATION 08/29/2016 ORENDER DO, GLENYS S Ot J15.9 UNSPECIFIED BACTERIAL PNEUMONIA 08/29/2016 ORENDER DO, GLENYS S Ot J15.9 UNSPECIFIED BACTERIAL PNEUMONIA 08/30/2016 ORENDER DO, GLENYS S Ot J15.9 UNSPECIFIED BACTERIAL PNEUMONIA 08/31/2016 ORENDER DO, GLENYS S Ot J15.9 UNSPECIFIED BACTERIAL PNEUMONIA 09/01/2016 ORENDER DO, GLENYS S Ot J15.9 UNSPECIFIED BACTERIAL PNEUMONIA 09/01/2016 ORENDER DO, GLENYS S Ot J15.9 UNSPECIFIED BACTERIAL PNEUMONIA 09/01/2016 ORENDER DO, GLENYS S Ot J15.9 UNSPECIFIED BACTERIAL PNEUMONIA 09/02/2016 ORENDER DO, GLENYS S Ot J15.9 UNSPECIFIED BACTERIAL PNEUMONIA 09/03/2016 ORENDER DO, GLENYS S Ot J15.9 UNSPECIFIED BACTERIAL PNEUMONIA 09/03/2016 ORENDER DO, GLENYS S Ot J15.9 UNSPECIFIED BACTERIAL PNEUMONIA 09/04/2016 ORENDER DO, GLENYS S Ot J15.9 UNSPECIFIED BACTERIAL PNEUMONIA 09/05/2016 ORENDER DO, GLENYS S Ot J15.9 UNSPECIFIED BACTERIAL PNEUMONIA 09/05/2016 GLADYS SWIFT APRN Ot R00.1 BRADYCARDIA, UNSPECIFIED 09/05/2016 GLADYS SWIFT APRN Ot R04.2 HEMOPTYSIS 09/05/2016 GLADYS SWIFT SENIOR SOFTWARE DEVELOPMENT MANAGER Ot R91.8 OTHER NONSPECIFIC ABNORMAL FINDING OF CED 09/05/2016 GLADYS SWIFT APRN Ot R04.2 HEMOPTYSIS 09/05/2016 GLADYS SWIFT APRN Ot R91.8 OTHER NONSPECIFIC ABNORMAL FINDING OF CED 09/05/2016 GRACIE JOSHI DO Ot R91. 1 SOLITARY PULMONARY NODULE 09/05/2016 ORENDER DO, GLENYS S Ot R10.9 UNSPECIFIED ABDOMINAL PAIN 09/05/2016 ORENDER DO, GLENYS S Ot R60.9 EDEMA, UNSPECIFIED 09/05/2016 ORENDER DO, GLENYS S Ot J15.9 UNSPECIFIED BACTERIAL PNEUMONIA 09/05/2016 ORENDER DO, GLENYS S Ot J15.9 UNSPECIFIED BACTERIAL PNEUMONIA 09/06/2016 GLADYS SWIFT APRN Ot R00.1 BRADYCARDIA, UNSPECIFIED 09/06/2016 GLADYS SWIFT SENIOR SOFTWARE DEVELOPMENT MANAGER Ot R04.2 HEMOPTYSIS 09/06/2016 GLADYS SWIFT SENIOR SOFTWARE DEVELOPMENT MANAGER Ot R91.8 OTHER NONSPECIFIC ABNORMAL FINDING OF CED 09/06/2016 GLADYS SWIFT SENIOR SOFTWARE DEVELOPMENT MANAGER Ot R04.2 HEMOPTYSIS 09/06/2016 GLADYS SWIFT Marlene SENIOR SOFTWARE DEVELOPMENT MANAGER Ot R91.8 OTHER NONSPECIFIC ABNORMAL FINDING OF CED 09/06/2016 ADI GRACIE LEARY Ot R91. 1 SOLITARY PULMONARY NODULE 09/06/2016 GLENYS PUENTES DO S Ot R10.9 UNSPECIFIED ABDOMINAL PAIN 09/06/2016 GLENYS PUENTES DO S Ot R60.9 EDEMA, UNSPECIFIED 09/06/2016 GLENYS PUENTES DO S Ot J15.9 UNSPECIFIED BACTERIAL PNEUMONIA 09/08/2016 JAMISON GLADYS N SENIOR SOFTWARE DEVELOPMENT MANAGER Ot R00.1 BRADYCARDIA, UNSPECIFIED 09/08/2016 JAMISON GLADYS N SENIOR SOFTWARE DEVELOPMENT MANAGER Ot R04.2 HEMOPTYSIS 09/08/2016 JAMISON GLADYS N SENIOR SOFTWARE DEVELOPMENT MANAGER Ot R91.8 OTHER NONSPECIFIC ABNORMAL FINDING OF CED 09/08/2016 GLADYS SWIFT SENIOR SOFTWARE DEVELOPMENT MANAGER Ot R04.2 HEMOPTYSIS 09/08/2016 JAMISON GLADYS N SENIOR SOFTWARE DEVELOPMENT MANAGER Ot R91.8 OTHER NONSPECIFIC ABNORMAL FINDING OF CED 09/08/2016 GRACIE JOSHI DO Ot R91. 1 SOLITARY PULMONARY NODULE 09/08/2016 SHANNON PUENTES DOLINE S Ot R10.9 UNSPECIFIED ABDOMINAL PAIN 09/08/2016 SHANNON PUENTES DOLINE S Ot R60.9 EDEMA, UNSPECIFIED 09/08/2016 SHANNON PUENTES DOLINE S Ot J15.9 UNSPECIFIED BACTERIAL PNEUMONIA 09/13/2016 GLENYS PUENTES DO S Ot D64.9 ANEMIA, UNSPECIFIED 09/13/2016 SHANNON PUENTES DOLINE S Ot E86.0 DEHYDRATION 09/13/2016 SHANNON PUENTES DOLINE S Ot E87.1 HYPO-OSMOLALITY AND HYPONATREMIA 09/13/2016 SHANNON PUENTES DOLINE S Ot I10 ESSENTIAL (PRIMARY) HYPERTENSION 09/13/2016 GLENYS PUENTES DO S Ot J85.1 ABSCESS OF LUNG WITH PNEUMONIA 09/13/2016 SHANNON PUENTES DOLINE S Ot K21.9 GASTRO-ESOPHAGEAL REFLUX DISEASE WITHOUT 09/13/2016 SHANNON PUENTES DOLINE S Ot M54.6 PAIN IN THORACIC SPINE 09/13/2016 GLENYS PUENTES DO Ot N17.9 ACUTE KIDNEY FAILURE, UNSPECIFIED 09/13/2016 GLENYS PUENTES DO Ot R60.9 EDEMA, UNSPECIFIED 09/13/2016 GLENYS PUENTES DO Ot Z23 ENCOUNTER FOR IMMUNIZATION 09/23/2016 GLENYS PUENTES DO Ot J15.9 UNSPECIFIED BACTERIAL PNEUMONIA 09/24/2016 Ot J85.2 ABSC ESS OF LUNG WITHOUT PNEUMONIA 09/25/2016 GLENYS PUENTES DO Ot Z45.2 ENCOUNTER FOR ADJUSTMENT AND MANAGEMENT 10/07/2016 Ot J85.2 ABSC ESS OF LUNG WITHOUT PNEUMONIA 10/11/2016 GRACIE JOSHI DO M Ot R91. 8 OTHER NONSPECIFIC ABNORMAL FINDING OF CED 10/17/2016 GRACIE JOSHI DO M Ot R91. 8 OTHER NONSPECIFIC ABNORMAL FINDING OF CED 10/17/2016 GRACIE JOSHI DO M Ot R91. 8 OTHER NONSPECIFIC ABNORMAL FINDING OF CED 10/17/2016 GRACIE JOSHI DO M Ot R91. 8 OTHER NONSPECIFIC ABNORMAL FINDING OF CED 10/21/2016 ADI GRACIE LEARY M Ot R91. 8 OTHER NONSPECIFIC ABNORMAL FINDING OF CED 10/21/2016 GLENYS PUENTES DO Ot Z45.2 ENCOUNTER FOR ADJUSTMENT AND MANAGEMENT 10/29/2016 GRACIE JOSHI DO Ot R91. 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 2 ABSCESS OF LUNG WITHOUT PNEUMONIA 04/17/2017 GRACIE JOSHI DO Ot R91. 8 OTHER NONSPECIFIC ABNORMAL FINDING OF CED 04/25/2017 GRACIE JOSHI DO Ot J85. 2 ABSCESS OF LUNG WITHOUT PNEUMONIA 04/25/2017 GRACIE JOSHI DO Ot R91. 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 04/25/2017 VALERIA SWIFTALEJANDRO Rosario SENIOR SOFTWARE DEVELOPMENT MANAGER Ot K57.30 DVRTCLOS OF LG INT W/O PERFORATION OR AB 04/25/2017 VALERIA SWIFTALEJANDRO Rosario SENIOR SOFTWARE DEVELOPMENT MANAGER Ot R31.9 HEMATURIA, UNSPECIFIED 06/06/2017 JANNA ANDERSON SENIOR SOFTWARE DEVELOPMENT MANAGER Ot F17.201 NICOTINE DEPENDENCE, UNSPECIFIED, IN REM 06/06/2017 JANNA ANDERSON SENIOR SOFTWARE DEVELOPMENT MANAGER Ot R06.00 DYSPNEA, UNSPECIFIED 06/06/2017 JANNA ANDERSON SENIOR SOFTWARE DEVELOPMENT MANAGER Ot R91.8 OTHER NONSPECIFIC ABNORMAL FINDING OF CED 10/20/2017 GLENYS PUENTES DO S Ot R04.2 HEMOPTYSIS 10/20/2017 SHANNON PUENTES DOLINE S Ot R91.8 OTHER NONSPECIFIC ABNORMAL FINDING OF CED 10/23/2017 ALEX NUR SENIOR SOFTWARE DEVELOPMENT MANAGER Ot J98.4 OTHER DISORDERS OF LUNG 10/23/2017 ALEX NUR SENIOR SOFTWARE DEVELOPMENT MANAGER Ot R59.0 LOCALIZED ENLARGED LYMPH NODES 10/23/2017 ALEX NUR SENIOR SOFTWARE DEVELOPMENT MANAGER Ot R91.1 SOLITARY PULMONARY NODULE 11/04/2017 GLENYS PUENTES DO S Ot R04.2 HEMOPTYSIS 11/04/2017 SHANNON PUENTES DOLINE S Ot R91.8 OTHER NONSPECIFIC ABNORMAL FINDING OF CED 11/04/2017 ALEX NUR SENIOR SOFTWARE DEVELOPMENT MANAGER Ot R59.0 LOCALIZED ENLARGED LYMPH NODES 11/04/2017 ALEX NUR SENIOR SOFTWARE DEVELOPMENT MANAGER Ot R91.8 OTHER NONSPECIFIC ABNORMAL FINDING OF CED 11/20/2017 GLADYS SWIFT Marlene SENIOR SOFTWARE DEVELOPMENT MANAGER Ot R00.1 BRADYCARDIA, UNSPECIFIED 11/20/2017 VALERIA SWIFTFANY Marlene SENIOR SOFTWARE DEVELOPMENT MANAGER Ot R04.2 HEMOPTYSIS 11/20/2017 VALERIA SWIFTALEJANDRO Rosario SENIOR SOFTWARE DEVELOPMENT MANAGER Ot R91.8 OTHER NONSPECIFIC ABNORMAL FINDING OF CED 11/20/2017 GLADYS SWIFT Marlene SENIOR SOFTWARE DEVELOPMENT MANAGER Ot R04.2 HEMOPTYSIS 11/20/2017 VALERIA SWIFTALEJANDRO Rosario SENIOR SOFTWARE DEVELOPMENT MANAGER Ot R91.8 OTHER NONSPECIFIC ABNORMAL FINDING OF CED 11/20/2017 GRACIE JOSHI DO Ot R91. 1 SOLITARY PULMONARY NODULE 11/20/2017 GRACIE JOSHI DO Ot R91. 8 OTHER NONSPECIFIC ABNORMAL FINDING OF CED 11/20/2017 SHANNON PUENTES DOLINE S Ot R10.9 UNSPECIFIED ABDOMINAL PAIN 11/20/2017 ILYA PUENTES DOQUELINE S Ot R60.9 EDEMA, UNSPECIFIED 11/20/2017 Ot J85.2 ABSC ESS OF LUNG WITHOUT PNEUMONIA 11/20/2017 GRACIE JOSHI DO Ot J85. 2 ABSCESS OF LUNG WITHOUT PNEUMONIA 11/20/2017 GRACIE JOSHI DO Ot R91. 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 11/20/2017 GLADYS SWIFT SENIOR SOFTWARE DEVELOPMENT MANAGER Ot K57.30 DVRTCLOS OF LG INT W/O PERFORATION OR AB 11/20/2017 GLADYS SWIFT SENIOR SOFTWARE DEVELOPMENT MANAGER Ot R31.9 HEMATURIA, UNSPECIFIED 11/20/2017 JANNA ANDERSON SENIOR SOFTWARE DEVELOPMENT MANAGER Ot F17.201 NICOTINE DEPENDENCE, UNSPECIFIED, IN REM 11/20/2017 JANNA ANDERSON SENIOR SOFTWARE DEVELOPMENT MANAGER Ot R06.00 DYSPNEA, UNSPECIFIED 11/20/2017 JANNA ANDERSON SENIOR SOFTWARE DEVELOPMENT MANAGER Ot R91.8 OTHER NONSPECIFIC ABNORMAL FINDING OF CED 11/20/2017 SHANNON PUENTES DOLINE S Ot R04.2 HEMOPTYSIS 11/20/2017 ILYA PUENTES DOQUELINE S Ot R91.8 OTHER NONSPECIFIC ABNORMAL FINDING OF CED 11/20/2017 ALEX NUR SENIOR SOFTWARE DEVELOPMENT MANAGER Ot R59.0 LOCALIZED ENLARGED LYMPH NODES 11/20/2017 ALEX NUR R SENIOR SOFTWARE DEVELOPMENT MANAGER Ot R91.8 OTHER NONSPECIFIC ABNORMAL FINDING OF CED 11/24/2017 GLADYS SWIFT Marlene SENIOR SOFTWARE DEVELOPMENT MANAGER Ot R00.1 BRADYCARDIA, UNSPECIFIED 11/24/2017 VALERIA SWIFTALEJANDRO Rosario SENIOR SOFTWARE DEVELOPMENT MANAGER Ot R04.2 HEMOPTYSIS 11/24/2017 GLADYS SWIFT Marlene SENIOR SOFTWARE DEVELOPMENT MANAGER Ot R91.8 OTHER NONSPECIFIC ABNORMAL FINDING OF CED 11/24/2017 GLADYS SWIFT Marlene SENIOR SOFTWARE DEVELOPMENT MANAGER Ot R04.2 HEMOPTYSIS 11/24/2017 GLADYS SWIFT Marlene SENIOR SOFTWARE DEVELOPMENT MANAGER Ot R91.8 OTHER NONSPECIFIC ABNORMAL FINDING OF CED 11/24/2017 GRACIE JOSHI DO Ot R91. 1 SOLITARY PULMONARY NODULE 11/24/2017 GRACIE JOSHI DO Ot R91. 8 OTHER NONSPECIFIC ABNORMAL FINDING OF CED 11/24/2017 GLENYS PUENTES DO S Ot R10.9 UNSPECIFIED ABDOMINAL PAIN 11/24/2017 GLENYS PUENTES DO S Ot R60.9 EDEMA, UNSPECIFIED 11/24/2017 Ot J85.2 ABSC ESS OF LUNG WITHOUT PNEUMONIA 11/24/2017 GRACIE JOSHI DO Ot J85. 2 ABSCESS OF LUNG WITHOUT PNEUMONIA 11/24/2017 GRACIE JOSHI DO Ot R91. 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 11/24/2017 GLADYS SWIFT SENIOR SOFTWARE DEVELOPMENT MANAGER Ot K57.30 DVRTCLOS OF LG INT W/O PERFORATION OR AB 11/24/2017 GLADYS SWIFT SENIOR SOFTWARE DEVELOPMENT MANAGER Ot R31.9 HEMATURIA, UNSPECIFIED 11/24/2017 JANNA ANDERSON SENIOR SOFTWARE DEVELOPMENT MANAGER Ot F17.201 NICOTINE DEPENDENCE, UNSPECIFIED, IN REM 11/24/2017 JNANA ANDERSON SENIOR SOFTWARE DEVELOPMENT MANAGER Ot R06.00 DYSPNEA, UNSPECIFIED 11/24/2017 JANNA ANDERSON SENIOR SOFTWARE DEVELOPMENT MANAGER Ot R91.8 OTHER NONSPECIFIC ABNORMAL FINDING OF CED 11/24/2017 ILYA PUENTES DOQUELINE S Ot R04.2 HEMOPTYSIS 11/24/2017 LEONARD LEARYGLENYS S Ot R91.8 OTHER NONSPECIFIC ABNORMAL FINDING OF CED 11/24/2017 ALEX NUR R SENIOR SOFTWARE DEVELOPMENT MANAGER Ot R59.0 LOCALIZED ENLARGED LYMPH NODES 11/24/2017 BOOM ALEX R SENIOR SOFTWARE DEVELOPMENT MANAGER Ot R91.8 OTHER NONSPECIFIC ABNORMAL FINDING OF CED 11/26/2017 JANNA ANDERSON SENIOR SOFTWARE DEVELOPMENT MANAGER Ot R91.1 SOLITARY PULMONARY NODULE 12/16/2017 JANNA ANDERSON SENIOR SOFTWARE DEVELOPMENT MANAGER Ot R91.1 SOLITARY PULMONARY NODULE 01/12/2018 GLADYS SWIFT SENIOR SOFTWARE DEVELOPMENT MANAGER Ot R00.1 BRADYCARDIA, UNSPECIFIED 01/12/2018 GLADYS SWIFT SENIOR SOFTWARE DEVELOPMENT MANAGER Ot R04.2 HEMOPTYSIS 01/12/2018 GLADYS SWIFT SENIOR SOFTWARE DEVELOPMENT MANAGER Ot R91.8 OTHER NONSPECIFIC ABNORMAL FINDING OF CED 01/12/2018 GLADYS SWIFT SENIOR SOFTWARE DEVELOPMENT MANAGER Ot R04.2 HEMOPTYSIS 01/12/2018 GLADYS SWIFT SENIOR SOFTWARE DEVELOPMENT MANAGER Ot R91.8 OTHER NONSPECIFIC ABNORMAL FINDING OF CED 01/12/2018 GRACIE JOSHI DO Ot R91. 1 SOLITARY PULMONARY NODULE 01/12/2018 GRACIE JOSHI DO Ot R91. 8 OTHER NONSPECIFIC ABNORMAL FINDING OF CED 01/12/2018 LEONARD LEARYGLENYS S Ot R10.9 UNSPECIFIED ABDOMINAL PAIN 01/12/2018 TAMIACARL LEARYGLENYS S Ot R60.9 EDEMA, UNSPECIFIED 01/12/2018 Ot J85.2 ABSC ESS OF LUNG WITHOUT PNEUMONIA 01/12/2018 GRACIE JOSHI DO Ot J85. 2 ABSCESS OF LUNG WITHOUT PNEUMONIA 01/12/2018 GRACIE JOSHI DO Ot R91. 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 01/12/2018 JAMISON GLADYS Marlene SENIOR SOFTWARE DEVELOPMENT MANAGER Ot K57.30 DVRTCLOS OF LG INT W/O PERFORATION OR AB 01/12/2018 GLADYS SWIFT SENIOR SOFTWARE DEVELOPMENT MANAGER Ot R31.9 HEMATURIA, UNSPECIFIED 01/12/2018 JANNA ANDERSON SENIOR SOFTWARE DEVELOPMENT MANAGER Ot F17.201 NICOTINE DEPENDENCE, UNSPECIFIED, IN REM 01/12/2018 JANNA ANDERSON APRN Ot R06.00 DYSPNEA, UNSPECIFIED 01/12/2018 JANNA ANDERSON SENIOR SOFTWARE DEVELOPMENT MANAGER Ot R91.8 OTHER NONSPECIFIC ABNORMAL FINDING OF CED 01/12/2018 JANNA ANDERSON SENIOR SOFTWARE DEVELOPMENT MANAGER Ot R91.1 SOLITARY PULMONARY NODULE 01/12/2018 SHANNON PUENTES DOLINE S Ot R04.2 HEMOPTYSIS 01/12/2018 TAMIANDSHANNON HERNANDEZ DOLINE S Ot R91.8 OTHER NONSPECIFIC ABNORMAL FINDING OF CED 01/12/2018 ALEX NUR R SENIOR SOFTWARE DEVELOPMENT MANAGER Ot R59.0 LOCALIZED ENLARGED LYMPH NODES 01/12/2018 ALEX NUR SENIOR SOFTWARE DEVELOPMENT MANAGER Ot R91.8 OTHER NONSPECIFIC ABNORMAL FINDING OF CED 01/13/2018 JANNA ANDERSON SENIOR SOFTWARE DEVELOPMENT MANAGER Ot R91.8 OTHER NONSPECIFIC ABNORMAL FINDING OF CED 01/18/2018 JANNA ANDERSON SENIOR SOFTWARE DEVELOPMENT MANAGER Ot R91.8 OTHER NONSPECIFIC ABNORMAL FINDING OF CED 04/20/2019 DOMINGA GARSIA MD Ot F17.201 NICOTINE DEPENDENCE, UNSPECIFIED, IN REM 04/20/2019 DOMINGA GARSIA MD Ot I08. 1 RHEUMATIC DISORDERS OF BOTH MITRAL AND T 04/20/2019 DOMINGA GARSIA MD Ot I10 ESSENTIAL (PRIMARY) HYPERTENSION 04/20/2019 DOMINGA GARSIA MD Ot R06. 09 OTHER FORMS OF DYSPNEA 04/20/2019 DOMINGA GARSIA MD Ot R07. 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 9 UNSPECIFIED ABDOMINAL PAIN 04/25/2019 LINCOLN LORA MD Ot R30. 9 PAINFUL MICTURITION, UNSPECIFIED 05/04/2019 DOMINGA GARSIA MD Ot F17.201 NICOTINE DEPENDENCE, UNSPECIFIED, IN REM 05/04/2019 DOMINGA GARSIA MD Ot I08. 1 RHEUMATIC DISORDERS OF BOTH MITRAL AND T 05/04/2019 DOMINGA GARSIA MD Ot I10 ESSENTIAL (PRIMARY) HYPERTENSION 05/04/2019 DOMINGA GARSIA MD Ot R06. 09 OTHER FORMS OF DYSPNEA 05/04/2019 DOMINGA GARSIA MD Ot R07. 89 OTHER CHEST PAIN 06/11/2019 DOMINGA GARSIA MD Ot F17.201 NICOTINE DEPENDENCE, UNSPECIFIED, IN REM 06/11/2019 DOMINGA GARSIA MD Ot I11. 9 HYPERTENSIVE HEART DISEASE WITHOUT HEART 06/11/2019 DOMINGA GARSIA MD Ot I25. 89 OTHER FORMS OF CHRONIC ISCHEMIC HEART DI 07/13/2019 DOMINGA GARSIA MD Ot E78. 5 HYPERLIPIDEMIA, UNSPECIFIED 07/13/2019 DOMINGA GARSIA MD Ot I10 ESSENTIAL (PRIMARY) HYPERTENSION 07/13/2019 DOMINGA GARSIA MD Ot I25. 10 ATHSCL HEART DISEASE OF [place] CORONARY 07/13/2019 DOMINGA GARSIA MD Ot M10. 9 GOUT, UNSPECIFIED 07/13/2019 DMOINGA GARSIA MD Ot Z79.899 OTHER GROUP HOME (CURRENT) DRUG THERAPY 07/13/2019 DOMINGA GARSIA MD Ot Z82. 49 FAMILY HX OF ISCHEM HEART DIS AND OTH DI 07/13/2019 DOMINGA GARSIA MD Ot Z87. 09 PERSONAL HISTORY OF OTHER DISEASES OF TH 07/13/2019 DOMINGA GARSIA MD Ot Z87.891 PERSONAL HISTORY OF NICOTINE DEPENDENCE 07/13/2019 DOMINGA GARSIA MD, Ot Z88. 5 ALLERGY STATUS TO NARCOTIC AGENT STATUS 07/13/2019 DOMINGA GARSIA MD Ot Z90. 49 ACQUIRED ABSENCE OF OTHER SPECIFIED PART Procedures Code Description Performed By [place] [id number] DR ANTUNEZ OF RIGHT LOWER LOBE BRONCHUS, E 09/06/2016 Results Test Result Range Complete blood count (CBC) with automate d white blood cell (WBC) differential - 08/15/16 21:10 Blood leukocytes automated count (number/volume) 11.9 10*3/uL 4.3-11.0 Blood erythrocytes automated count (number/volume) 3.85 10*6/uL 4.35-5.85 Venous blood hemoglobin measurement (mass/volume) 11.5 g/dL 11.5-16.0 Blood hematocrit (volume fraction) 34 % 35-52 Automated erythrocyte mean corpuscular volume 87 [ foz_us] 80-99 Automated erythrocyte mean corpuscular h emoglobin (mass per erythrocyte) 30 pg 25-34 Automated erythrocyte mean corpuscular h emoglobin concentration measurement (mass/volume) 34 g/dL 32-36 Automated erythrocyte distribution width ratio 12. 9 % 10.0- 14.5 Automated blood platelet count (count/volume) 329 10*3/uL 130-400 Automated blood platelet mean volume measurement 8.8 [foz_us] 7.4-10.4 Automated blood neutrophils/100 leukocytes 75 % 42-75 Automated blood lymphocytes/100 leukocytes 13 % 12-44 Blood monocytes/100 leukocytes 10 % 0-12 Automated blood eosinophils/100 leukocytes 1 % 0-10 Automated blood basophils/100 leukocytes 0 % 0-10 Blood neutrophils automated count (number/volume) 9.0 10*3 1.8-7.8 Blood lymphocytes automated count (number/volume) 1.6 10*3 1.0-4.0 Blood monocytes automated count (number/volume) 1. 1 10*3 0.0-1.0 Automated eosinophil count 0.2 10*3/uL 0 .0-0.3 Automated blood basophil count (count/volume) 0.0 10*3/uL 0.0-0.1 PT panel in platelet poor plasma by coag ulation assay - 08/15/16 21:10 Prothrombin time (PT) in platelet poor plasma by coagu lation assay 12.7 s 12.2-14.7 INR in platelet poor plasma or blood by coagulation as say 1.0 0.8-1.4 Comprehensive metabolic panel - 08/15/16 21:10 Serum or plasma sodium measurement (moles/volume) 131 mmol/L 135-145 Serum or plasma potassium measurement (moles/volume) 4.4 mmol/L 3.6-5.0 Serum or plasma chloride measurement (moles/volume) 99 mmol/L 98-107 Carbon dioxide 18 mmol/L 21-32 Serum or plasma anion gap determination (moles/volume) 14 mmol/L 5-14 Serum or plasma urea nitrogen measurement (mass/volume ) 30 mg/dL 7-18 Serum or plasma creatinine measurement (mass/volume) 1.22 mg/dL 0.60-1.30 Serum or plasma urea nitrogen/creatinine mass ratio 25 NRG Serum or plasma creatinine measurement w ith calculation of estimated glomerular filtration rate 45 NRG Serum or plasma glucose measurement (mass/volume) 107 mg/dL 70-105 Serum or plasma calcium measurement (mass/volume) 9.7 mg/dL 8.5-10.1 Serum or plasma total bilirubin measurement (mass/volu me) 0.3 mg/dL 0.1-1.0 Serum or plasma alkaline phosphatase héctor surement (enzymatic activity/volume) 69 U/L 40-136 Serum or plasma aspartate aminotransfera se measurement (enzymatic activity/volume) 18 U/L 5-34 Serum or plasma alanine aminotransferase measurement (enzymatic activity/volume) 18 U/L 0-55 Serum or plasma protein measurement (mass/volume) 7.5 g/dL 6.4-8.2 Serum or plasma albumin measurement (mass/volume) 4.3 g/dL 3.2-4.5 Sputum Gram stain - 08/15/16 22:35 GRAM STAIN SPUTUM AND MIXED BACTERIAL CHICHI NRG Bacterial sputum culture - 08/15/16 22:3 5 Bacterial sputum culture NORMAL NRG Bacterial blood culture - 08/15/16 22:35 Bacterial blood culture NG NRG Bacterial blood culture - 08/15/16 23:05 Bacterial blood culture NG NRG Complete blood count (CBC) with automate d white blood cell (WBC) differential - 08/16/16 04:47 Blood leukocytes automated count (number/volume) 8.5 10*3/uL 4.3-11.0 Blood erythrocytes automated count (number/volume) 3.49 10*6/uL 4.35-5.85 Venous blood hemoglobin measurement (mass/volume) 10.4 g/dL 11.5-16.0 Blood hematocrit (volume fraction) 31 % 35-52 Automated erythrocyte mean corpuscular volume 88 [ foz_us] 80-99 Automated erythrocyte mean corpuscular h emoglobin (mass per erythrocyte) 30 pg 25-34 Automated erythrocyte mean corpuscular h emoglobin concentration measurement (mass/volume) 34 g/dL 32-36 Automated erythrocyte distribution width ratio 13. 0 % 10.0- 14.5 Automated blood platelet count (count/volume) 285 10*3/uL 130-400 Automated blood platelet mean volume measurement 8.9 [foz_us] 7.4-10.4 Automated blood neutrophils/100 leukocytes 74 % 42-75 Automated blood lymphocytes/100 leukocytes 14 % 12-44 Blood monocytes/100 leukocytes 11 % 0-12 Automated blood eosinophils/100 leukocytes 2 % 0-10 Automated blood basophils/100 leukocytes 0 % 0-10 Blood neutrophils automated count (number/volume) 6.3 10*3 1.8-7.8 Blood lymphocytes automated count (number/volume) 1.2 10*3 1.0-4.0 Blood monocytes automated count (number/volume) 0. 9 10*3 0.0-1.0 Automated eosinophil count 0.1 10*3/uL 0 .0-0.3 Automated blood basophil count (count/volume) 0.0 10*3/uL 0.0-0.1 Complete blood count (CBC) with automate d white blood cell (WBC) differential - 08/17/16 06:50 Blood leukocytes automated count (number/volume) 5.9 10*3/uL 4.3-11.0 Blood erythrocytes automated count (number/volume) 3.58 10*6/uL 4.35-5.85 Venous blood hemoglobin measurement (mass/volume) 10.6 g/dL 11.5-16.0 Blood hematocrit (volume fraction) 32 % 35-52 Automated erythrocyte mean corpuscular volume 90 [ foz_us] 80-99 Automated erythrocyte mean corpuscular h emoglobin (mass per erythrocyte) 30 pg 25-34 Automated erythrocyte mean corpuscular h emoglobin concentration measurement (mass/volume) 33 g/dL 32-36 Automated erythrocyte distribution width ratio 12. 8 % 10.0- 14.5 Automated blood platelet count (count/volume) 302 10*3/uL 130-400 Automated blood platelet mean volume measurement 8.8 [foz_us] 7.4-10.4 Automated blood neutrophils/100 leukocytes 65 % 42-75 Automated blood lymphocytes/100 leukocytes 18 % 12-44 Blood monocytes/100 leukocytes 11 % 0-12 Automated blood eosinophils/100 leukocytes 5 % 0-10 Automated blood basophils/100 leukocytes 1 % 0-10 Blood neutrophils automated count (number/volume) 3.8 10*3 1.8-7.8 Blood lymphocytes automated count (number/volume) 1.1 10*3 1.0-4.0 Blood monocytes automated count (number/volume) 0. 7 10*3 0.0-1.0 Automated eosinophil count 0.3 10*3/uL 0 .0-0.3 Automated blood basophil count (count/volume) 0.0 10*3/uL 0.0-0.1 Comprehensive metabolic panel - 08/17/16 06:50 Serum or plasma sodium measurement (moles/volume) 141 mmol/L 135-145 Serum or plasma potassium measurement (moles/volume) 4.9 mmol/L 3.6-5.0 Serum or plasma chloride measurement (moles/volume) 112 mmol/L 98-107 Carbon dioxide 20 mmol/L 21-32 Serum or plasma anion gap determination (moles/volume) 9 mmol/L 5-14 Serum or plasma urea nitrogen measurement (mass/volume ) 17 mg/dL 7-18 Serum or plasma creatinine measurement (mass/volume) 0.96 mg/dL 0.60-1.30 Serum or plasma urea nitrogen/creatinine mass ratio 18 NRG Serum or plasma creatinine measurement w ith calculation of estimated glomerular filtration rate 59 NRG Serum or plasma glucose measurement (mass/volume) 100 mg/dL 70-105 Serum or plasma calcium measurement (mass/volume) 9.3 mg/dL 8.5-10.1 Serum or plasma total bilirubin measurement (mass/volu me) 0.3 mg/dL 0.1-1.0 Serum or plasma alkaline phosphatase héctor surement (enzymatic activity/volume) 63 U/L 40-136 Serum or plasma aspartate aminotransfera se measurement (enzymatic activity/volume) 23 U/L 5-34 Serum or plasma alanine aminotransferase measurement (enzymatic activity/volume) 33 U/L 0-55 Serum or plasma protein measurement (mass/volume) 6.0 g/dL 6.4-8.2 Serum or plasma albumin measurement (mass/volume) 3.4 g/dL 3.2-4.5 Vancomycin trough - 08/17/16 20:40 Vancomycin trough 6.9 ug/mL 10.0-20.0 Capillary blood glucose measurement by g lucometer (mass/volume) - 08/18/16 10:13 Capillary blood glucose measurement by glucometer (mas s/volume) 91 mg/dL 70-110 Vancomycin trough - 08/19/16 19:55 Vancomycin trough 28.4 ug/mL 10.0-20.0 Vancomycin trough - 08/23/16 06:40 Vancomycin trough 11.8 ug/mL 10.0-20.0 Vancomycin trough - 08/27/16 06:50 Vancomycin trough 9.9 ug/mL 10.0-20.0 Vancomycin trough - 08/30/16 07:00 Vancomycin trough 14.0 ug/mL 10.0-20.0 Automated blood complete blood count (he mogram) panel - 09/01/16 08:47 Blood leukocytes automated count (number/volume) 4.8 10*3/uL 4.3-11.0 Blood erythrocytes automated count (number/volume) 3.79 10*6/uL 4.35-5.85 Venous blood hemoglobin measurement (mass/volume) 11.1 g/dL 11.5-16.0 Blood hematocrit (volume fraction) 32 % 35-52 Automated erythrocyte mean corpuscular volume 84 [ foz_us] 80-99 Automated erythrocyte mean corpuscular h emoglobin (mass per erythrocyte) 29 pg 25-34 Automated erythrocyte mean corpuscular h emoglobin concentration measurement (mass/volume) 35 g/dL 32-36 Automated erythrocyte distribution width ratio 13. 9 % 10.0- 14.5 Automated blood platelet count (count/volume) 254 10*3/uL 130-400 Automated blood platelet mean volume measurement 9.0 [foz_us] 7.4-10.4 Comprehensive metabolic panel - 09/01/16 08:47 Serum or plasma sodium measurement (moles/volume) 128 mmol/L 135-145 Serum or plasma potassium measurement (moles/volume) 4.1 mmol/L 3.6-5.0 Serum or plasma chloride measurement (moles/volume) 95 mmol/L 98-107 Carbon dioxide 24 mmol/L 21-32 Serum or plasma anion gap determination (moles/volume) 9 mmol/L 5-14 Serum or plasma urea nitrogen measurement (mass/volume ) 17 mg/dL 7-18 Serum or plasma creatinine measurement (mass/volume) 1.02 mg/dL 0.60-1.30 Serum or plasma urea nitrogen/creatinine mass ratio 17 NRG Serum or plasma creatinine measurement w ith calculation of estimated glomerular filtration rate 55 NRG Serum or plasma glucose measurement (mass/volume) 99 mg/dL 70-105 Serum or plasma calcium measurement (mass/volume) 9.1 mg/dL 8.5-10.1 Serum or plasma total bilirubin measurement (mass/volu me) 0.6 mg/dL 0.1-1.0 Serum or plasma alkaline phosphatase héctor surement (enzymatic activity/volume) 67 U/L 40-136 Serum or plasma aspartate aminotransfera se measurement (enzymatic activity/volume) 30 U/L 5-34 Serum or plasma alanine aminotransferase measurement (enzymatic activity/volume) 26 U/L 0-55 Serum or plasma protein measurement (mass/volume) 6.9 g/dL 6.4-8.2 Serum or plasma albumin measurement (mass/volume) 4.0 g/dL 3.2-4.5 Complete blood count (CBC) with automate d white blood cell (WBC) differential - 09/02/16 12:15 Blood leukocytes automated count (number/volume) 4.0 10*3/uL 4.3-11.0 Blood erythrocytes automated count (number/volume) 3.50 10*6/uL 4.35-5.85 Venous blood hemoglobin measurement (mass/volume) 10.2 g/dL 11.5-16.0 Blood hematocrit (volume fraction) 29 % 35-52 Automated erythrocyte mean corpuscular volume 82 [ foz_us] 80-99 Automated erythrocyte mean corpuscular h emoglobin (mass per erythrocyte) 29 pg 25-34 Automated erythrocyte mean corpuscular h emoglobin concentration measurement (mass/volume) 36 g/dL 32-36 Automated erythrocyte distribution width ratio 13. 9 % 10.0- 14.5 Automated blood platelet count (count/volume) 202 10*3/uL 130-400 Automated blood platelet mean volume measurement 9.5 [foz_us] 7.4-10.4 Automated blood neutrophils/100 leukocytes 76 % 42-75 Automated blood lymphocytes/100 leukocytes 12 % 12-44 Blood monocytes/100 leukocytes 7 % 0-12 Automated blood eosinophils/100 leukocytes 4 % 0-10 Automated blood basophils/100 leukocytes 0 % 0-10 Blood neutrophils automated count (number/volume) 3.0 10*3 1.8-7.8 Blood lymphocytes automated count (number/volume) 0.5 10*3 1.0-4.0 Blood monocytes automated count (number/volume) 0. 3 10*3 0.0-1.0 Automated eosinophil count 0.2 10*3/uL 0 .0-0.3 Automated blood basophil count (count/volume) 0.0 10*3/uL 0.0-0.1 Bacterial blood culture - 09/02/16 12:15 Bacterial blood culture NG [facility] Complete blood count (CBC) with automate d white blood cell (WBC) differential - 09/05/16 12:20 Blood leukocytes automated count (number/volume) 3.9 10*3/uL 4.3-11.0 Blood erythrocytes automated count (number/volume) 3.53 10*6/uL 4.35-5.85 Venous blood hemoglobin measurement (mass/volume) 10.1 g/dL 11.5-16.0 Blood hematocrit (volume fraction) 29 % 35-52 Automated erythrocyte mean corpuscular volume 82 [ foz_us] 80-99 Automated erythrocyte mean corpuscular h emoglobin (mass per erythrocyte) 29 pg 25-34 Automated erythrocyte mean corpuscular h emoglobin concentration measurement (mass/volume) 35 g/dL 32-36 Automated erythrocyte distribution width ratio 14. 4 % 10.0- 14.5 Automated blood platelet count (count/volume) 233 10*3/uL 130-400 Automated blood platelet mean volume measurement 9.0 [foz_us] 7.4-10.4 Automated blood neutrophils/100 leukocytes 72 % 42-75 Automated blood lymphocytes/100 leukocytes 13 % 12-44 Blood monocytes/100 leukocytes 9 % 0-12 Automated blood eosinophils/100 leukocytes 6 % 0-10 Automated blood basophils/100 leukocytes 1 % 0-10 Blood neutrophils automated count (number/volume) 2.8 10*3 1.8-7.8 Blood lymphocytes automated count (number/volume) 0.5 10*3 1.0-4.0 Blood monocytes automated count (number/volume) 0. 3 10*3 0.0-1.0 Automated eosinophil count 0.2 10*3/uL 0 .0-0.3 Automated blood basophil count (count/volume) 0.0 10*3/uL 0.0-0.1 Comprehensive metabolic panel - 09/05/16 12:20 Serum or plasma sodium measurement (moles/volume) 125 mmol/L 135-145 Serum or plasma potassium measurement (moles/volume) 3.8 mmol/L 3.6-5.0 Serum or plasma chloride measurement (moles/volume) 94 mmol/L 98-107 Carbon dioxide 25 mmol/L 21-32 Serum or plasma anion gap determination (moles/volume) 6 mmol/L 5-14 Serum or plasma urea nitrogen measurement (mass/volume ) 28 mg/dL 7-18 Serum or plasma creatinine measurement (mass/volume) 2.12 mg/dL 0.60-1.30 Serum or plasma urea nitrogen/creatinine mass ratio 13 NRG Serum or plasma creatinine measurement w ith calculation of estimated glomerular filtration rate 24 NRG Serum or plasma glucose measurement (mass/volume) 101 mg/dL 70-105 Serum or plasma calcium measurement (mass/volume) 8.4 mg/dL 8.5-10.1 Serum or plasma total bilirubin measurement (mass/volu me) 0.5 mg/dL 0.1-1.0 Serum or plasma alkaline phosphatase héctor surement (enzymatic activity/volume) 47 U/L 40-136 Serum or plasma aspartate aminotransfera se measurement (enzymatic activity/volume) 24 U/L 5-34 Serum or plasma alanine aminotransferase measurement (enzymatic activity/volume) 24 U/L 0-55 Serum or plasma protein measurement (mass/volume) 6.6 g/dL 6.4-8.2 Serum or plasma albumin measurement (mass/volume) 3.8 g/dL 3.2-4.5 Serum or plasma C reactive protein measu rement (mass/volume) - 09/05/16 12:20 Serum or plasma C reactive protein measurement (mass/v olume) 7.07 mg/dL 0.00-0.50 Methicillin resistant Staphylococcus aur eus (MRSA) screening culture - 09/05/16 16:50 Methicillin resistant Staphylococcus aureus (MRSA) scr eening culture NEG NRG Whole blood basic metabolic panel - 08/11 06/25 06:10 Serum or plasma sodium measurement (moles/volume) 128 mmol/L 135-145 Serum or plasma potassium measurement (moles/volume) 3.8 mmol/L 3.6-5.0 Serum or plasma chloride measurement (moles/volume) 98 mmol/L 98-107 Carbon dioxide 20 mmol/L 21-32 Serum or plasma anion gap determination (moles/volume) 10 mmol/L 5-14 Serum or plasma urea nitrogen measurement (mass/volume ) 24 mg/dL 7-18 Serum or plasma creatinine measurement (mass/volume) 1.99 mg/dL 0.60-1.30 Serum or plasma urea nitrogen/creatinine mass ratio 12 NRG Serum or plasma creatinine measurement w ith calculation of estimated glomerular filtration rate 25 NRG Serum or plasma glucose measurement (mass/volume) 92 mg/dL 70-105 Serum or plasma calcium measurement (mass/volume) 8.3 mg/dL 8.5-10.1 Vancomycin trough - 09/06/16 06:10 Vancomycin trough 41.1 ug/mL 10.0-20.0 Bacterial blood culture - 09/06/16 06:27 Bacterial blood culture NG NRG Blood lactic acid measurement (moles/vol ume) - 09/06/16 06:47 Blood lactic acid measurement (moles/volume) 0.6 m mol/L 0.5- 2.0 Bacterial blood culture - 09/06/16 06:56 Bacterial blood culture NG NRG Vancomycin trough - 09/06/16 07:08 Vancomycin trough 39.7 ug/mL 10.0-20.0 Bacterial blood culture - 09/06/16 07:08 Bacterial blood culture NG NRG Sputum Gram stain - 09/06/16 08:00 GRAM STAIN SPUTUM AND MIXED BACTERIAL CHICHI NRG Bacteria identification in bronchial spe cimen by aerobe culture - 09/06/16 08:00 Bacteria identification in bronchial specimen by aerob e culture NORMAL NRG Sputum Gram stain - 09/06/16 08:00 Sputum Gram stain No WBC's or bacteria observed NRG Bacteria identification in bronchial spe cimen by aerobe culture - 09/06/16 08:00 Bacteria identification in bronchial specimen by aerob e culture NG NRG Fungus culture - 09/06/16 08:00 Fungus culture NG NRG Mycobacterium species detection by organ ism specific culture - 09/06/16 08:00 DATE/TIME MICROSCOPIC 09-09-2016/6 N RG MICROSCOPIC NO ACID-FAST BACILLI FOUND NRG AFB CULTURE NO MYCOBACTERIA RECOVERED AFTER 6 WEEK S NRG DATE FINAL AFB CULTURE 10/30/16 13:40 N RG Fungus culture - 09/06/16 08:00 FUNGUS REPORT NO FUNGUS GROWTH OBSERVED NRG Complete urinalysis with reflex to cultu re - 09/06/16 11:25 Urine color determination YELLOW NRG Urine clarity determination CLEAR NR G Urine pH measurement by test strip 6 5-9 Specific gravity of urine by test strip 1.010 1.016-1.022 Urine protein assay by test strip, semi-quantitative 1+ NEGATIVE Urine glucose detection by automated test strip NE GATIVE NEGATIVE Erythrocytes detection in urine sediment by light micr oscopy 2+ NEGATIVE Urine ketones detection by automated test strip NE GATIVE NEGATIVE Urine nitrite detection by test strip NEGATIVE NEGATIVE Urine total bilirubin detection by test strip NEGA TIVE NEGATIVE Urine urobilinogen measurement by automated test strip (mass/volume) NORMAL NORMAL Urine leukocyte esterase detection by dipstick NEG ATIVE NEGATIVE Automated urine sediment erythrocyte cou nt by microscopy (number/high power field) NONE NRG Automated urine sediment leukocyte count by microscopy (number/high power field) RARE NRG Bacteria detection in urine sediment by light microsco py TRACE NRG Squamous epithelial cells detection in u rine sediment by light microscopy RARE NRG Crystals detection in urine sediment by light microsco py NONE NRG Casts detection in urine sediment by light microscopy NONE NRG Mucus detection in urine sediment by light microscopy NEGATIVE NRG Complete urinalysis with reflex to culture NO NRG Vancomycin trough - 09/07/16 06:23 Vancomycin trough 25.9 ug/mL 10.0-20.0 Complete blood count (CBC) with automate d white blood cell (WBC) differential - 09/07/16 09:35 Blood leukocytes automated count (number/volume) 5.0 10*3/uL 4.3-11.0 Blood erythrocytes automated count (number/volume) 3.12 10*6/uL 4.35-5.85 Venous blood hemoglobin measurement (mass/volume) 9.0 g/dL 11.5-16.0 Blood hematocrit (volume fraction) 26 % 35-52 Automated erythrocyte mean corpuscular volume 84 [ foz_us] 80-99 Automated erythrocyte mean corpuscular h emoglobin (mass per erythrocyte) 29 pg 25-34 Automated erythrocyte mean corpuscular h emoglobin concentration measurement (mass/volume) 35 g/dL 32-36 Automated erythrocyte distribution width ratio 14. 2 % 10.0- 14.5 Automated blood platelet count (count/volume) 227 10*3/uL 130-400 Automated blood platelet mean volume measurement 9.1 [foz_us] 7.4-10.4 Automated blood neutrophils/100 leukocytes 66 % 42-75 Automated blood lymphocytes/100 leukocytes 19 % 12-44 Blood monocytes/100 leukocytes 10 % 0-12 Automated blood eosinophils/100 leukocytes 5 % 0-10 Automated blood basophils/100 leukocytes 1 % 0-10 Blood neutrophils automated count (number/volume) 3.3 10*3 1.8-7.8 Blood lymphocytes automated count (number/volume) 0.9 10*3 1.0-4.0 Blood monocytes automated count (number/volume) 0. 5 10*3 0.0-1.0 Automated eosinophil count 0.2 10*3/uL 0 .0-0.3 Automated blood basophil count (count/volume) 0.0 10*3/uL 0.0-0.1 Whole blood basic metabolic panel - 08/11 07/26 09:35 Serum or plasma sodium measurement (moles/volume) 132 mmol/L 135-145 Serum or plasma potassium measurement (moles/volume) 3.9 mmol/L 3.6-5.0 Serum or plasma chloride measurement (moles/volume) 103 mmol/L 98-107 Carbon dioxide 21 mmol/L 21-32 Serum or plasma anion gap determination (moles/volume) 8 mmol/L 5-14 Serum or plasma urea nitrogen measurement (mass/volume ) 17 mg/dL 7-18 Serum or plasma creatinine measurement (mass/volume) 1.79 mg/dL 0.60-1.30 Serum or plasma urea nitrogen/creatinine mass ratio 9 NRG Serum or plasma creatinine measurement w ith calculation of estimated glomerular filtration rate 29 NRG Serum or plasma glucose measurement (mass/volume) 107 mg/dL 70-105 Serum or plasma calcium measurement (mass/volume) 8.0 mg/dL 8.5-10.1 Complete blood count (CBC) with automate d white blood cell (WBC) differential - 09/08/16 05:35 Blood leukocytes automated count (number/volume) 4.6 10*3/uL 4.3-11.0 Blood erythrocytes automated count (number/volume) 2.79 10*6/uL 4.35-5.85 Venous blood hemoglobin measurement (mass/volume) 7.9 g/dL 11.5-16.0 Blood hematocrit (volume fraction) 24 % 35-52 Automated erythrocyte mean corpuscular volume 85 [ foz_us] 80-99 Automated erythrocyte mean corpuscular h emoglobin (mass per erythrocyte) 28 pg 25-34 Automated erythrocyte mean corpuscular h emoglobin concentration measurement (mass/volume) 33 g/dL 32-36 Automated erythrocyte distribution width ratio 14. 2 % 10.0- 14.5 Automated blood platelet count (count/volume) 223 10*3/uL 130-400 Automated blood platelet mean volume measurement 9.1 [foz_us] 7.4-10.4 Automated blood neutrophils/100 leukocytes 68 % 42-75 Automated blood lymphocytes/100 leukocytes 19 % 12-44 Blood monocytes/100 leukocytes 8 % 0-12 Automated blood eosinophils/100 leukocytes 4 % 0-10 Automated blood basophils/100 leukocytes 0 % 0-10 Blood neutrophils automated count (number/volume) 3.1 10*3 1.8-7.8 Blood lymphocytes automated count (number/volume) 0.9 10*3 1.0-4.0 Blood monocytes automated count (number/volume) 0. 4 10*3 0.0-1.0 Automated eosinophil count 0.2 10*3/uL 0 .0-0.3 Automated blood basophil count (count/volume) 0.0 10*3/uL 0.0-0.1 Whole blood basic metabolic panel - 08/12 016 05:35 Serum or plasma sodium measurement (moles/volume) 134 mmol/L 135-145 Serum or plasma potassium measurement (moles/volume) 4.1 mmol/L 3.6-5.0 Serum or plasma chloride measurement (moles/volume) 106 mmol/L 98-107 Carbon dioxide 18 mmol/L 21-32 Serum or plasma anion gap determination (moles/volume) 10 mmol/L 5-14 Serum or plasma urea nitrogen measurement (mass/volume ) 17 mg/dL 7-18 Serum or plasma creatinine measurement (mass/volume) 1.64 mg/dL 0.60-1.30 Serum or plasma urea nitrogen/creatinine mass ratio 10 NRG Serum or plasma creatinine measurement w ith calculation of estimated glomerular filtration rate 32 NRG Serum or plasma glucose measurement (mass/volume) 98 mg/dL 70-105 Serum or plasma calcium measurement (mass/volume) 8.0 mg/dL 8.5-10.1 Vancomycin trough - 09/08/16 05:35 Vancomycin trough 15.6 ug/mL 10.0-20.0 Complete blood count (CBC) with automate d white blood cell (WBC) differential - 09/09/16 06:20 Blood leukocytes automated count (number/volume) 4.3 10*3/uL 4.3-11.0 Blood erythrocytes automated count (number/volume) 2.87 10*6/uL 4.35-5.85 Venous blood hemoglobin measurement (mass/volume) 8.3 g/dL 11.5-16.0 Blood hematocrit (volume fraction) 24 % 35-52 Automated erythrocyte mean corpuscular volume 85 [ foz_us] 80-99 Automated erythrocyte mean corpuscular h emoglobin (mass per erythrocyte) 29 pg 25-34 Automated erythrocyte mean corpuscular h emoglobin concentration measurement (mass/volume) 34 g/dL 32-36 Automated erythrocyte distribution width ratio 14. 3 % 10.0- 14.5 Automated blood platelet count (count/volume) 241 10*3/uL 130-400 Automated blood platelet mean volume measurement 8.9 [foz_us] 7.4-10.4 Automated blood neutrophils/100 leukocytes 66 % 42-75 Automated blood lymphocytes/100 leukocytes 16 % 12-44 Blood monocytes/100 leukocytes 8 % 0-12 Automated blood eosinophils/100 leukocytes 9 % 0-10 Automated blood basophils/100 leukocytes 1 % 0-10 Blood neutrophils automated count (number/volume) 2.9 10*3 1.8-7.8 Blood lymphocytes automated count (number/volume) 0.7 10*3 1.0-4.0 Blood monocytes automated count (number/volume) 0. 3 10*3 0.0-1.0 Automated eosinophil count 0.4 10*3/uL 0 .0-0.3 Automated blood basophil count (count/volume) 0.0 10*3/uL 0.0-0.1 Comprehensive metabolic panel - 09/09/16 06:20 Serum or plasma sodium measurement (moles/volume) 137 mmol/L 135-145 Serum or plasma potassium measurement (moles/volume) 4.3 mmol/L 3.6-5.0 Serum or plasma chloride measurement (moles/volume) 108 mmol/L 98-107 Carbon dioxide 22 mmol/L 21-32 Serum or plasma anion gap determination (moles/volume) 7 mmol/L 5-14 Serum or plasma urea nitrogen measurement (mass/volume ) 15 mg/dL 7-18 Serum or plasma creatinine measurement (mass/volume) 1.45 mg/dL 0.60-1.30 Serum or plasma urea nitrogen/creatinine mass ratio 10 NRG Serum or plasma creatinine measurement w ith calculation of estimated glomerular filtration rate 37 NRG Serum or plasma glucose measurement (mass/volume) 98 mg/dL 70-105 Serum or plasma calcium measurement (mass/volume) 8.2 mg/dL 8.5-10.1 Serum or plasma total bilirubin measurement (mass/volu me) 0.3 mg/dL 0.1-1.0 Serum or plasma alkaline phosphatase héctor surement (enzymatic activity/volume) 41 U/L 40-136 Serum or plasma aspartate aminotransfera se measurement (enzymatic activity/volume) 24 U/L 5-34 Serum or plasma alanine aminotransferase measurement (enzymatic activity/volume) 25 U/L 0-55 Serum or plasma protein measurement (mass/volume) 5.4 g/dL 6.4-8.2 Serum or plasma albumin measurement (mass/volume) 3.0 g/dL 3.2-4.5 Vancomycin trough - 09/09/16 06:20 Vancomycin trough 21.1 ug/mL 10.0-20.0 Complete blood count (CBC) with automate d white blood cell (WBC) differential - 09/12/16 05:29 Blood leukocytes automated count (number/volume) 5.7 10*3/uL 4.3-11.0 Blood erythrocytes automated count (number/volume) 3.28 10*6/uL 4.35-5.85 Venous blood hemoglobin measurement (mass/volume) 9.3 g/dL 11.5-16.0 Blood hematocrit (volume fraction) 28 % 35-52 Automated erythrocyte mean corpuscular volume 85 [ foz_us] 80-99 Automated erythrocyte mean corpuscular h emoglobin (mass per erythrocyte) 28 pg 25-34 Automated erythrocyte mean corpuscular h emoglobin concentration measurement (mass/volume) 33 g/dL 32-36 Automated erythrocyte distribution width ratio 14. 0 % 10.0- 14.5 Automated blood platelet count (count/volume) 383 10*3/uL 130-400 Automated blood platelet mean volume measurement 8.7 [foz_us] 7.4-10.4 Automated blood neutrophils/100 leukocytes 55 % 42-75 Automated blood lymphocytes/100 leukocytes 26 % 12-44 Blood monocytes/100 leukocytes 12 % 0-12 Automated blood eosinophils/100 leukocytes 7 % 0-10 Automated blood basophils/100 leukocytes 1 % 0-10 Blood neutrophils automated count (number/volume) 3.1 10*3 1.8-7.8 Blood lymphocytes automated count (number/volume) 1.5 10*3 1.0-4.0 Blood monocytes automated count (number/volume) 0. 7 10*3 0.0-1.0 Automated eosinophil count 0.4 10*3/uL 0 .0-0.3 Automated blood basophil count (count/volume) 0.0 10*3/uL 0.0-0.1 Whole blood basic metabolic panel - 01/23 05:29 Serum or plasma sodium measurement (moles/volume) 140 mmol/L 135-145 Serum or plasma potassium measurement (moles/volume) 4.7 mmol/L 3.6-5.0 Serum or plasma chloride measurement (moles/volume) 104 mmol/L 98-107 Carbon dioxide 25 mmol/L 21-32 Serum or plasma anion gap determination (moles/volume) 11 mmol/L 5-14 Serum or plasma urea nitrogen measurement (mass/volume ) 33 mg/dL 7-18 Serum or plasma creatinine measurement (mass/volume) 1.58 mg/dL 0.60-1.30 Serum or plasma urea nitrogen/creatinine mass ratio 21 NRG Serum or plasma creatinine measurement w ith calculation of estimated glomerular filtration rate 33 NRG Serum or plasma glucose measurement (mass/volume) 80 mg/dL 70-105 Serum or plasma calcium measurement (mass/volume) 9.6 mg/dL 8.5-10.1 Automated blood complete blood count (he mogram) panel - 09/16/16 14:30 Blood leukocytes automated count (number/volume) 5.9 10*3/uL 4.3-11.0 Blood erythrocytes automated count (number/volume) 3.18 10*6/uL 4.35-5.85 Venous blood hemoglobin measurement (mass/volume) 9.0 g/dL 11.5-16.0 Blood hematocrit (volume fraction) 27 % 35-52 Automated erythrocyte mean corpuscular volume 86 [ foz_us] 80-99 Automated erythrocyte mean corpuscular h emoglobin (mass per erythrocyte) 28 pg 25-34 Automated erythrocyte mean corpuscular h emoglobin concentration measurement (mass/volume) 33 g/dL 32-36 Automated erythrocyte distribution width ratio 13. 8 % 10.0- 14.5 Automated blood platelet count (count/volume) 423 10*3/uL 130-400 Automated blood platelet mean volume measurement 8.7 [foz_us] 7.4-10.4 Whole blood basic metabolic panel - 1105/25 14:30 Serum or plasma sodium measurement (moles/volume) 139 mmol/L 135-145 Serum or plasma potassium measurement (moles/volume) 4.4 mmol/L 3.6-5.0 Serum or plasma chloride measurement (moles/volume) 106 mmol/L 98-107 Carbon dioxide 18 mmol/L 21-32 Serum or plasma anion gap determination (moles/volume) 15 mmol/L 5-14 Serum or plasma urea nitrogen measurement (mass/volume ) 42 mg/dL 7-18 Serum or plasma creatinine measurement (mass/volume) 2.02 mg/dL 0.60-1.30 Serum or plasma urea nitrogen/creatinine mass ratio 21 NRG Serum or plasma creatinine measurement w ith calculation of estimated glomerular filtration rate 25 NRG Serum or plasma glucose measurement (mass/volume) 102 mg/dL 70-105 Serum or plasma calcium measurement (mass/volume) 9.2 mg/dL 8.5-10.1 [id number] - 10/22/17 09:45 Serum or plasma urea nitrogen measurement (mass/volume ) 15 mg/dL 7-18 Serum or plasma creatinine measurement (mass/volume) 0.93 mg/dL 0.60-1.30 Serum or plasma urea nitrogen/creatinine mass ratio 16 NRG Serum or plasma creatinine measurement w ith calculation of estimated glomerular filtration rate > NRG Automated blood complete blood count (he mogram) panel - 06/23/19 07:04 Blood leukocytes automated count (number/volume) 5.5 10*3/uL 4.3-11.0 Blood erythrocytes automated count (number/volume) 4.46 10*6/uL 4.35-5.85 Venous blood hemoglobin measurement (mass/volume) 13.3 g/dL 11.5-16.0 Blood hematocrit (volume fraction) 40 % 35-52 Automated erythrocyte mean corpuscular volume 91 [ foz_us] 80-99 Automated erythrocyte mean corpuscular h emoglobin (mass per erythrocyte) 30 pg 25-34 Automated erythrocyte mean corpuscular h emoglobin concentration measurement (mass/volume) 33 g/dL 32-36 Automated erythrocyte distribution width ratio 14. 1 % 10.0- 14.5 Automated blood platelet count (count/volume) 263 10*3/uL 130-400 Automated blood platelet mean volume measurement 9.4 [foz_us] 7.4-10.4 PT panel in platelet poor plasma by coag ulation assay - 06/23/19 07:04 Prothrombin time (PT) in platelet poor plasma by coagu lation assay 12.5 s 12.2-14.7 INR in platelet poor plasma or blood by coagulation as say 0.9 0.8-1.4 Activated partial thromboplastin time (a PTT) in platelet poor plasma bycoagulation assay - 06/23/19 07:04 Activated partial thromboplastin time (a PTT) in platelet poor plasma bycoagulation assay 32 s 24-35 Comprehensive metabolic panel - 06/23/19 07:04 Serum or plasma sodium measurement (moles/volume) 142 mmol/L 135-145 Serum or plasma potassium measurement (moles/volume) 4.6 mmol/L 3.6-5.0 Serum or plasma chloride measurement (moles/volume) 109 mmol/L 98-107 Carbon dioxide 25 mmol/L 21-32 Serum or plasma anion gap determination (moles/volume) 8 mmol/L 5-14 Serum or plasma urea nitrogen measurement (mass/volume ) 19 mg/dL 7-18 Serum or plasma creatinine measurement (mass/volume) 1.11 mg/dL 0.60-1.30 Serum or plasma urea nitrogen/creatinine mass ratio 17 NRG Serum or plasma creatinine measurement w ith calculation of estimated glomerular filtration rate 49 NRG Serum or plasma glucose measurement (mass/volume) 92 mg/dL 70-105 Serum or plasma calcium measurement (mass/volume) 9.8 mg/dL 8.5-10.1 Serum or plasma total bilirubin measurement (mass/volu me) 0.3 mg/dL 0.1-1.0 Serum or plasma alkaline phosphatase héctor surement (enzymatic activity/volume) 65 U/L 40-136 Serum or plasma aspartate aminotransfera se measurement (enzymatic activity/volume) 18 U/L 5-34 Serum or plasma alanine aminotransferase measurement (enzymatic activity/volume) 16 U/L 0-55 Serum or plasma protein measurement (mass/volume) 7.3 g/dL 6.4-8.2 Serum or plasma albumin measurement (mass/volume) 4.3 g/dL 3.2-4.5 CALCIUM CORRECTED 9.6 mg/dL 8.5-10.1 Lipid 1996 panel - 06/23/19 07:04 Serum or plasma triglyceride measurement (mass/volume) 53 mg/dL <150 Serum or plasma cholesterol measurement (mass/volume) 175 mg/dL < 200 Serum or plasma cholesterol in HDL measurement (mass/v olume) 84 mg/dL 40-60 Cholesterol in LDL [mass/volume] in serum or plasma by direct assay 80 mg/dL 1-129 Serum or plasma cholesterol in VLDL measurement (mass/ volume) 11 mg/dL 5-40 Methicillin resistant Staphylococcus aur eus (MRSA) screening culture - 06/23/19 07:04 Methicillin resistant Staphylococcus aureus (MRSA) scr eening culture NEG NRG Encounters ACCT No. Visit Date/Time Discharge Status Pt. Type Provider Facility Loc./Unit Complaint [id number] 08/06/2014 09:10:00 08/06/2014 23:59: 59 CLS Outpatient BENJAMIN IRWIN DO 12/201611/26/2017 09:52:47 11/26/2017 23:59 :59 CLS Outpatient Glenys Puentes [id number] 01/24/2020 06:11:00 00:01:00 DIS Outpatient LINCOLN LORA MD [facility] CR3 PHASE III [id number] 06/23/2019 06:40:00 12:15:00 DIS Outpatient DOMINGA GARSIA MD [facility] CATH ABN STRESS TEST,DYSPNEA ,HTN [id number] 06/09/2019 07:13:00 23:59:59 CLS Outpatient DOMINGA GARSIA MD [facility] RAD ANTERIOR CHEST WALL SARAH N [id number] 04/15/2019 08:55:00 23:59:59 CLS Outpatient LINCOLN LORA MD [facility] RAD L FLANK PAIN,DYSURIA [id number] 04/15/2019 08:05:00 06/06/2 019 23:59:59 CLS Outpatient SUN UNGER, DOMINGA Dickinson [facility] CARD ANTERIOR CHEST WALL SARAH N [id number] 01/12/2018 08:41:00 018 23:59:59 CLS Outpatient JANNA ANDERSON SENIOR SOFTWARE DEVELOPMENT MANAGER [facility] RAD R91.8 LUNG MASS [id number] 11/25/2017 08:14:00 018 23:59:59 CLS Outpatient JANNA ANDERSON SENIOR SOFTWARE DEVELOPMENT MANAGER [facility] RAD LUNG MASS R91.8 [id number] 10/22/2017 09:38:00 017 23:59:59 CLS Outpatient ALEX NUR SENIOR SOFTWARE DEVELOPMENT MANAGER [facility] RAD COUGH,SOFT TISS UE MASS [id number] 10/20/2017 13:08:00 017 23:59:59 CLS Outpatient GLENYS PUENTES DO S [facility] RAD COUGH,HEMOPTYSI S [id number] 05/26/2017 12:30:00 017 23:59:59 CLS Outpatient JANNA ANDERSON SENIOR SOFTWARE DEVELOPMENT MANAGER [facility] RT R06.00 DYSPNEA [id number] 04/15/2017 07:37:00 017 23:59:59 CLS Outpatient GRACIE JOSHI DO [facility] RAD LUNG ABSCESS,LUNG MASS [id number] 03/06/2017 16:48:00 017 23:59:59 CLS Outpatient GLADYS SWIFT SENIOR SOFTWARE DEVELOPMENT MANAGER [facility] RAD FLANK PAIN [id number] 12/18/2016 00:09:00 017 23:59:59 CLS Preadmit GLENYS PUENTES DO S [facility] SDC PICC LINE [id number] 09/25/2016 06:40:00 017 00:01:00 DIS Outpatient GLENYS PUENTES DO S [facility] SDC PICC LINE [id number] 11/21/2016 00:08:00 23:59:59 CLS Preadmit GLENYS PUENTES DO [facility] SDC BACTERIAL PNEUM ONIA [id number] 09/05/2016 06:35:00 00:01:00 DIS Outpatient GLENYS PUENTES DO [facility] SDC BACTERIAL PNEUM ONIA [id number] 10/10/2016 07:28:00 23:59:59 CLS Outpatient GRACIE JOSHI DO [facility] RAD ESSENTIAL HYPERTENSION; LUNG MASS [id number] 09/05/2016 11:43:00 10:40:00 DIS Inpatient GLENYS PUENTES DO [facility] 4TH RT PULMONARY AB CESS [id number] 08/15/2016 22:56:00 13:00:00 DIS Inpatient GLENYS PUENTES DO [facility] 4TH R LUNG ABSCESS VS NEOPLASM [id number] 08/06/2016 09:01:00 016 23:59:59 CLS Outpatient GLENYS PUENTES DO [facility] RAD RT FLANK PAIN,E MADISON [id number] 05/01/2016 08:05:00 016 23:59:59 CLS Outpatient GRACIE JOSHI DO [facility] RAD LUNG MASS [id number] 01/22/2016 08:48:00 016 15:05:00 DIS Outpatient GLENYS PUENTES DO [facility] RAD RT LUNG BASED N ODULE [id number] 01/08/2016 15:32:00 016 23:59:59 CLS Outpatient GLADYS SWIFT APRN [facility] RAD ABNORMAL,CXR [id number] 01/03/2016 11:45:00 016 23:59:59 CLS Outpatient GLADYS SWIFT SENIOR SOFTWARE DEVELOPMENT MANAGER [facility] CATH HEMOPTYSIS,COUGH,BRADYCARDIA [id number] 03/16/2015 16:51:00 015 23:59:59 CLS Outpatient DEJAN ROGERS [facility] RAD [id number] 02/20/2015 22:05:00 015 10:56:00 DIS Inpatient GLENYS PUENTES DO [facility] SURGICAL [id number] 08/09/2014 15:25:00 014 23:59:59 CLS Outpatient [id number] 05/23/2020 08:32:[address] Emergency MELISSA UNGER, SUMANTH Dickinson [facility] ER BACK PAIN [id number] 09/16/2016 15:55:00 Document Registration [id number] 01/06/2015 10:51:00 Document Registration
--- NOTE | 2020-05-23 08:46 | ED Back Pain ---
General Stated Complaint: BACK PAIN Source of Information: Patient Exam Limitations: No Limitations History of Present Illness Date Seen by Provider: May 23, 2020 Time Seen by Provider: 08:30 Initial Comments Patient presents to ER by private conveyance from home with chief complaint for the past 4 days she's been having some 6/10 back pain at her right co stovertebral angle. No recent history of trauma. No history of kidney stones. No surgeries on her back. She notices no dysuria, hematuria however she says she thought might of been a kidney infection so she started taking some leftover Keflex for 1 day and then yesterday took another antibiotic she had left over but doesn't know what it was. Her pain has not gotten any better despite Tylenol. She's having no fevers nausea vomiting diarrhea or constipation. Allergies and Home Medications Allergies Coded Allergies: codeine (Verified Adverse Reaction, Mild, NAUSEA...CAN TAKE HYDROCODONE, 09/05/16) Home Medications Cetirizine HCl 10 Mg Tablet, 10 MG PO DAILY, (Reported) Cranberry Extract 200 Mg Capsule, 200 MG PO DAILY, (Reported) Magnesium Oxide 400 Mg Capsule, 400 MG PO DAILY, (Reported) Metoprolol Succinate 25 Mg Tab.er.24h, 25 MG PO HS, (Reported) Patient Home Medication List Home Medication List Reviewed: Yes Review of Systems Constitutional: No chills, No diaphoresis EENTM: No ear discharge, No ear pain Respiratory: No cough, No short of breath Cardiovascular: No chest pain, No edema Gastrointestinal: No abdominal pain, No constipation, No diarrhea, No nausea, No vomiting Genitourinary: No discharge, No dysuria, No hematuria, No hesitancy Musculoskeletal: see HPI, back pain; No joint pain All Other Systems Reviewed Negative Unless Noted: Yes Past Nzojnti-Wgqtjp-Qzgrfe Hx Patient Social History Alcohol Use: Denies Use Recreational Drug Use: No Smoking Status: Current Everyday Smoker Type Used: Cigarettes Recent Hopitalizations: Yes Immunizations Up To Date Tetanus Booster (TDap): Unknown Date of Pneumonia Vaccine: Sep 11, 2016 Date of Influenza Vaccine: Sep 11, 2016 Seasonal Allergies Seasonal Allergies: No Past Medical History Section, Gallbladder Respiratory: Yes Pneumonia Cardiac: Yes Hypertension Neurological: No Reproductive Disorders: No SAUSAGE STUFFER History: Menopausal Sexually Transmitted Disease: No Genitourinary: No UTI-Chronic Gastrointestinal: Yes Diverticulosis Gout Cancer: No Blood Disorders: No Adverse Reaction/Blood Tranf: No Family Medical History Cataracts 19 FATHER, Onset:Unknown 19 MOTHER, Onset:Unknown Diabetes mellitus Daughter, Onset:Unknown FH: Alzheimers disease 19 FATHER, Onset:Unknown FH: GI cancer G8 BROTHER, Onset:Unknown Gout Daughter, Onset:Unknown Hypertension 19 MOTHER, Onset:Unknown Physical Exam Vital Signs Vital Signs - First Documented 05/23/20 08:34 Temp 36.7 Pulse 67 Resp 18 B/P (MAP) 164/100 (121) Pulse Ox 100 Capillary Refill : Height, Weight, BMI Height: 5'3.00" Weight: 155lbs. 0.0oz. 70.601905hh; 27.5 BMI Method:Stated General Appearance: No Apparent Distress, WD/WN HEENT: PERRL/EOMI, Pharynx Normal, Moist Mucous Membranes Neck: Full Range of Motion, Normal Inspection, Non Tender Cardiovascular: Regular Rate, Rhythm, No Edema, Normal Peripheral Pulses Respiratory: Lungs Clear, Normal Breath Sounds, No Accessory Muscle Use, No Respiratory Distress Gastrointestinal: Normal Bowel Sounds, Non Tender, Soft Extremity: Normal Capillary Refill, Normal Inspection, No Pedal Edema Neurologic/Psychiatric: Alert, Oriented x3 Skin: Normal Color, Warm/Dry Progress/Results/Core Measures Results/Orders Lab Results Laboratory Tests Test 05/23/20 08:44 05/23/20 09:45 Range/Units Urine Color YELLOW Urine Clarity CLEAR Urine pH 5.5 5-9 Urine Specific [place] <=1.005 1.016-1.022 Urine Protein NEGATIVE NEGATIVE Urine Glucose (UA) NEGATIVE NEGATIVE Urine Ketones NEGATIVE NEGATIVE Urine Nitrite NEGATIVE NEGATIVE Urine Bilirubin NEGATIVE NEGATIVE Urine Urobilinogen 0.2 < = 1.0 MG/DL Urine Leukocyte Esterase NEGATIVE NEGATIVE Urine RBC (Auto) NEGATIVE NEGATIVE Urine RBC NONE /HPF Urine WBC RARE /HPF Urine Squamous Epithelial Cells 2-5 /HPF Urine Crystals NONE /LPF Urine Bacteria TRACE /HPF Urine Casts NONE /LPF Urine Mucus NEGATIVE /LPF Urine Culture Indicated NO White Blood Count 5.0 4.3-11.0 10^3/uL Red Blood Count 4.02 L 4.35-5.85 10^6/uL Hemoglobin 12.1 11.5-16.0 G/DL Hematocrit 35 35-52 % Mean Corpuscular Volume 88 80-99 FL Mean Corpuscular Hemoglobin 30 25-34 PG Mean Corpuscular Hemoglobin Concent 34 32-36 G/DL Red Cell Distribution Width 13.0 10.0-14.5 % Platelet Count 274 130-400 10^3/uL Mean Platelet Volume 9.0 7.4-10.4 FL Neutrophils (%) (Auto) 52 42-75 % Lymphocytes (%) (Auto) 31 12-44 % Monocytes (%) (Auto) 12 0-12 % Eosinophils (%) (Auto) 4 0-10 % Basophils (%) (Auto) 0 0-10 % Neutrophils # (Auto) 2.6 1.8-7.8 X 10^3 Lymphocytes # (Auto) 1.6 1.0-4.0 X 10^3 Monocytes # (Auto) 0.6 0.0-1.0 X 10^3 Eosinophils # (Auto) 0.2 0.0-0.3 10^3/uL Basophils # (Auto) 0.0 0.0-0.1 10^3/uL Sodium Level 134 L 135-145 MMOL/L Potassium Level 4.5 3.6-5.0 MMOL/L Chloride Level 100 98-107 MMOL/L Carbon Dioxide Level 24 21-32 MMOL/L Anion Gap 10 5-14 MMOL/L Blood Urea Nitrogen 24 H 7-18 MG/DL Creatinine 1.19 0.60-1.30 MG/DL Estimat Glomerular Filtration Rate 46 BUN/Creatinine Ratio 20 Glucose Level 103 70-105 MG/DL Calcium Level 9.8 8.5-10.1 MG/DL Corrected Calcium 9.6 8.5-10.1 MG/DL Total Bilirubin 0.4 0.1-1.0 MG/DL Aspartate Amino Transf (AST/SGOT) 27 5-34 U/L Alanine Aminotransferase (ALT/SGPT) 25 0-55 U/L Alkaline Phosphatase 62 40-136 U/L Total Protein 7.1 6.4-8.2 GM/DL Albumin 4.3 3.2-4.5 GM/DL My Orders Orders - SUMANTH TORRES Ua Culture If Indicated (05/23/20 08:40) Cbc With Automated Diff (05/23/20 09:05) Comprehensive Metabolic Panel (05/23/20 09:05) Ct Abd/Pelvis Wo(Kidney Stone) (05/23/20 09:05) Acetaminophen Tablet (Tylenol Tablet) (05/23/20 09:15) Ed Iv/Invasive Line Start (05/23/20 09:05) Medications Given in ED Current Medications Medications Dose Ordered Sig/Tony Route Start Time Stop Time Status Last Admin Dose Admin Acetaminophen 1,000 mg ONCE ONCE PO 05/23/20 09:15 05/23/20 09:16 DC 05/23/20 09:13 1,000 MG Vital Signs/I&O 05/23/20 08:34 Temp 36.7 Pulse 67 Resp 18 B/P (MAP) 164/100 (121) Pulse Ox 100 Progress Progress Note #1: Time: 08:46 Progress Note Patient is in no acute distress with aseptic vital signs and unremarkable exam. We can address her pain appropriately with either Toradol or opiates if necessary. First step would be to get a urinalysis. If there is blood we'll get a CT scan if not we may treat this more like pyelonephritis. Progress Note #2: Time: 10:36 Progress Note Patient's pain has significantly improved with Tylenol. She describes she's had this pain off and on several times for the past several years and it sounds more musculoskeletal with the patient is convinced nothing else. I do not find anything emergent or dangerous today. There is a possibility since she has already been on a couple days of antibiotics that we missed this in the urinalysis so I will order a urine culture and put her on a week of Keflex and encourage her to follow-up at the end of that week with Dr. Lora. She is in agreement with this plan. We have discussed return precautions. Diagnostic Imaging Diagonstic Imaging: CT Plain Films/CT/US/NM/MRI: abdomen, pelvis Comments [facility] [place], [place] NAME: DEVAN MAZARIEGOS [facility] REC#: [id number] PT STATUS: REG ER : 1955 PHYSICIAN: SUMANTH TORRES MD ADMIT DATE: 05/23/20/ER Draft Date of Exam:05/23/20 CT ABD/PELVIS WO(KIDNEY STONE) PROCEDURE: CT urinary tract, rule out kidney stone. TECHNIQUE: Multiple contiguous axial images were obtained through the abdomen and pelvis without the use of intravenous contrast. Auto Exposure Controls were utilized during the CT exam to meet ALARA standards for radiation dose reduction. INDICATION: Right flank pain. Study compared with abdominal pelvic CT performed 03/06/2017 and correlated with overlapped images obtained during chest CT 01/12/2018. FINDINGS: There is no hydroureteronephrosis, no radiodense urinary tract stone. The unopacified urinary bladder unremarkable. Uterus and adnexa unremarkable. There is noninflamed colonic and sigmoid diverticulosis. A duodenal diverticulum is nonobstructing and chronic. The gallbladder surgically absent. There is a tiny hiatal hernia, chronic. Spleen, adrenals and pancreas unremarkable. No ascites, abscess, hematoma or acute fluid collection. No free air. Lung bases were nonacute. IMPRESSION: Nonfocal unobstructed urinary tracts, chronic duodenal diverticulum in noninflamed sigmoid diverticulosis. An acute appearing abnormality was not identified. Dictated on workstation # [id number] Dict: 05/23/20 1009 Trans: 05/23/20 1017 CV [id number] Interpreted by: CHRIS BLANCO Electronically signed by: Reviewed: Reviewed by Me Departure Impression Primary Impression: UTI (urinary tract infection) Qualified Codes: N30.00 - Acute cystitis without hematuria Additional Impression: Back pain Qualified Codes: M54.6 - Pain in thoracic spine Disposition: 01 HOME, SELF-CARE Condition: Stable Departure-Patient Inst. Decision time for Depature: 10:37 Referrals: LINCOLN LORA MD (PCP/Family) Primary Care Physician Patient Instructions: Upper Back Pain (DC) Add. Discharge Instructions: You are mildly dehydrated so I would encourage you to drink more fluids for the next week. Take the Keflex one capsule twice a day for the next week. Plan to follow up at the end of the week or early next week with Dr. Lora for reexamination. Tylenol 1000 mg every 8 hours as necessary for pain. Heating pads and topical creams such as icy hot, Biofreeze or lidocaine patches. Cyclobenzaprine one half to one tablet every 8 hours as necessary for muscle relaxation however this will cause significant drowsiness. Return to the ER if you develop fever, intractable nausea and vomiting or other worrisome symptoms. Scripts Cyclobenzaprine HCl (Cyclobenzaprine HCl) 10 Mg Tablet 10 MG PO Q8H PRN for SPASMS, #15 TAB 0 Refills Prov: MELISSA,SUMANTH J 05/23/20 Cephalexin (Cephalexin) 500 Mg Tablet 500 MG PO BID for 7 Days, #14 TAB 0 Refills Prov: SUMANTH TORRES 05/23/20 Copy Copies To 1: LINCOLN LORA MD, TITUS J May 23, 2020 08:46
[2020-05-23 08:53] LABS: BILIRUBIN,URINE NEGATIVE (NEGATIVE); CLARITY,URINE CLEAR; COLOR,URINE YELLOW; GLUCOSE, URINE (UA) NEGATIVE (NEGATIVE); KETONES,URINE NEGATIVE (NEGATIVE); LEUKOCYTE ESTERASE ,URINE NEGATIVE (NEGATIVE); NITRITE,URINE NEGATIVE (NEGATIVE); PH,URINE 5.5 (5-9); PROTEIN,URINE NEGATIVE (NEGATIVE)
--- NOTE | 2020-05-23 08:58 | NUR ---
WARM BLANKET GIVEN.
[2020-05-23 09:02] LABS: BACTERIA,URINE TRACE /HPF; WBC,URINE RARE /HPF
[2020-05-23] MEDS ORDERED: ACETAMINOPHEN 500 MG TAB (TYLENOL) PO ONE (09:15)
[2020-05-23 10:00] LABS: BASOPHILS % (AUTO) 0 % (0-10); EOSINOPHILS # (AUTO) 0.2 10^3/uL (0.0-0.3); EOSINOPHILS % (AUTO) 4 % (0-10); HEMATOCRIT 35 % (35-52); HEMOGLOBIN 12.1 G/DL (11.5-16.0); LYMPHOCYTES # (AUTO) 1.6 X 10^3 (1.0-4.0); LYMPHOCYTES % (AUTO) 31 % (12-44); MEAN CORPUSCULAR HEMOGLOBIN 30 PG (25-34); MEAN CORPUSCULAR HGB CONC 34 G/DL (32-36); MEAN CORPUSCULAR VOLUME 88 FL (80-99); MONOCYTES # (AUTO) 0.6 X 10^3 (0.0-1.0); MONOCYTES % (AUTO) 12 % (0-12); NEUTROPHILS # (AUTO) 2.6 X 10^3 (1.8-7.8); NEUTROPHILS % (AUTO) 52 % (42-75); PLATELET COUNT 274 10^3/uL (130-400)
[2020-05-23 10:13] LABS: ALBUMIN 4.3 GM/DL (3.2-4.5); POTASSIUM 4.5 MMOL/L (3.6-5.0)
[2020-05-23 10:14] LABS: CALCIUM 9.8 MG/DL (8.5-10.1)
[2020-05-23 10:15] LABS: TOTAL PROTEIN 7.1 GM/DL (6.4-8.2)
[2020-05-23 10:17] LABS: BILIRUBIN,TOTAL 0.4 MG/DL (0.1-1.0)
--- NOTE | 2020-05-23 10:17 | Diagnostic Imaging Report ---
PROCEDURE: CT urinary tract, rule out kidney stone. TECHNIQUE: Multiple contiguous axial images were obtained through the abdomen and pelvis without the use of intravenous contrast. Auto Exposure Controls were utilized during the CT exam to meet ALARA standards for radiation dose reduction. INDICATION: Right flank pain. Study compared with abdominal pelvic CT performed 03/06/2017 and correlated with overlapped images obtained during chest CT 01/12/2018. FINDINGS: There is no hydroureteronephrosis, no radiodense urinary tract stone. The unopacified urinary bladder unremarkable. Uterus and adnexa unremarkable. There is noninflamed colonic and sigmoid diverticulosis. A duodenal diverticulum is nonobstructing and chronic. The gallbladder surgically absent. There is a tiny hiatal hernia, chronic. Spleen, adrenals and pancreas unremarkable. No ascites, abscess, hematoma or acute fluid collection. No free air. Lung bases were nonacute. IMPRESSION: Nonfocal unobstructed urinary tracts, chronic duodenal diverticulum in noninflamed sigmoid diverticulosis. An acute appearing abnormality was not identified. Dictated by: Dictated on workstation # [id number]
[2020-05-23 10:19] LABS: CREATININE SERUM 1.19 MG/DL (0.60-1.30)
[2020-05-23] MEDS ORDERED: CEPH500T PO (10:39)
[2020-05-23] MEDS ORDERED: CYCL10TA9 PO (10:39)
[2020-05-23 10:58] VITALS: BP 158/79
== END 2020-05-23 10:58 | disposition home or self-care (01) ==
LOC: EDUNIT# 08:31 → ER 08:32
DX: N39.0 Urinary tract infection, site not specified (principal); I10 Essential (primary) hypertension; F17.210 Nicotine dependence, cigarettes, uncomplicated; Z88.5 Allergy status to narcotic agent; Z82.49 Family history of ischemic heart disease and other diseases of the circulatory system; Z80.0 Family history of malignant neoplasm of digestive organs
CPT/HCPCS: 36415; 74176; 80053; 81000; 85025; 87077; 87088; 87186

== ENCOUNTER → 2021-02-16 | Outpatient (CLI) | payer MEDICARE, OTHER ==
[~2021-02-16] MED LIST changes: +CEPH500T PO; +CYCL10TA9 PO
== END ==
LOC: CARD 13:00
PROVIDERS: ATTEND Internal Medicine Cardiovascular Disease
DX: I08.1 Rheumatic disorders of both mitral and tricuspid valves (principal); I10 Essential (primary) hypertension
CPT/HCPCS: 93306

== ENCOUNTER → 2021-04-02 | Outpatient (CLI) | payer MEDICARE, OTHER ==
[~2021-04-02] VITALS: Ht 160 cm; Wt 178.0 kg
[~2021-04-02] MED LIST changes: +CATHETER FLUSH 10 ML SYR IV PRN; +REGADENOSON 0.4 MG/5 ML SYR (LEXISCAN) IV ONE
[2021-04-02 09:33] VITALS: BP 137/69
--- NOTE | 2021-04-02 12:07 | Cardiology Stress Test Report ---
Stress Test Report Date of Procedure/Referring: Date of Procedure: April 02, 2021 PCP Dominga José MD Admitting Physician Kamaljit Mathur MD Indications: HTN Baseline Heart Rate: 54 Baseline Blood Pressure: Blood Pressure Systolic: 137 Blood Pressure Diastolic: 69 Vital Signs Date Time Temp Pulse Resp B/P (MAP) Pulse Ox O2 Delivery O2 Flow Rate FiO2 04/02/21 09:33 52 16 137/69 (91) 97 Room Air Baseline Vital Signs Vital Signs Date Time Temp Pulse Resp B/P (MAP) Pulse Ox O2 Delivery O2 Flow Rate FiO2 04/02/21 09:33 52 16 137/69 (91) 97 Room Air Baseline EKG: Baseline EKG: NSR Summary: After explaining the procedure and details to the patient, she signed the consent and was brought to the stress nuclear laboratory. Patient exercised on standard Jhonny protocol, EKG, heart rate and blood pressure were monitored continuously, resting and stress doses of radio tracer were injected, imaging was acquired and reviewed in the short axis, horizontal long axis and vertical long axis views Patient was able to exercise for a total of 5.30 minutes on Jhonny protocol, METs 7.1 Maximum heart rate 142 Maximum blood pressure 176/83 Stress EKG, Minimal nondiagnostic changes Recovery EKG, Return to baseline TID: 1.11 SSS: 6 SDS: 6 EF: 64 Conclusion: 1. Fair exercise tolerance for 5 minutes 30 seconds on standard Jhonny protocol, 7.1 METS achieving 91% of maximal expected heart rate 2. Minimal nondiagnostic EKG changes with exercise return to baseline during recovery 3. Appropriate heart rate response to exercise with mild hypertensive response to exercise return to baseline during recovery 4. Breast attenuation with mild decreased uptake at the mid to apical anterolateral wall with mild reversibility, probably secondary to breast attenuation 5. Normal left ventricular size, EF 64% DOMINGA JOSÉ MD April 02, 2021 12:07
== END ==
LOC: CARD 08:30
PROVIDERS: ATTEND Internal Medicine Cardiovascular Disease
DX: I10 Essential (primary) hypertension (principal)
CPT/HCPCS: 78452; 93017; A9502